=== PATIENT | male | born 1970 | race Caucasian/White ===

== ENCOUNTER 2024-04-08 09:09 | Emergency (ER) | payer OTHER, SELFPAY ==
[2024-04-08 09:09] VITALS: BP 177/103; PULSE 79; RESP 18; TEMP 36.6; O2SAT 98; BMI 38.3
--- NOTE | 2024-04-08 10:16 | EDS_ITS ---
HPI HPI - GI History of Present Illness Chief Complaint: GI Bleed Narrative Narrative: 53-year-old male presenting with blood in stool. He states it was bright red. He was having a bowel movement playing on his phone when he noted he went to wipe and there was blood on the toilet paper. He states he was not straining. He states there was enough blood to make the toilet water pink. He has not had this before. He is not on any blood thinners. He denies abdominal pain or rectal pain. He has not had fever, chills. No nausea or vomiting. PFSH PFSH Allergy/AdvReac Type Severity Reaction Status Date / Time No Known Allergies Allergy Verified 04/08/24 09:11 Social History Smoking Status: Current every day smoker tobacco type: cigarettes ROS ROS ED Constitutional Constitutional ED: Denies chills, fever(s) or sweats Eyes Eyes: Denies blurry vision or change in vision ENT ENT ED: Denies ear pain or sore throat Cardiovascular Cardiovascular: Denies chest pain, palpitations or racing heartbeat Respiratory/Chest Respiratory/Chest: Denies cough, dyspnea or sputum Gastrointestinal Gastrointestinal: Reports other Details: Blood in stool ; Denies abdominal pain, constipation, diarrhea, nausea or vomiting Genitourinary Genitourinary ED: Denies dysuria, hematuria or urinary frequency Musculoskeletal Musculoskeletal: Denies arthralgias, myalgias or neck pain Integumentary Denies abscess, Abrasions or rash Neurologic Neurologic: Denies headache(s), paresthesias or weakness Psychiatric Psychiatric: Denies anxiety, depression, suicidal ideation or suicidal thoughts Endocrine Endocrinology: Denies polydipsia or polyuria EXAM Physical Exam Const Vital Signs: 04/08/24 09:09 04/08/24 11:09 04/08/24 12:00 Temperature 97.8 F 97.5 F L Temperature Source Temporal Pulse Rate 79 82 85 Respiratory Rate 18 17 20 H Blood Pressure 177/103 H 160/98 H 147/92 H Blood Pressure Mean 127 118 110 Pulse Ox 98 96 Oxygen Delivery Method Room Air Positive well nourished General Appearance ED: NAD; Negative for pallor HEENT Reports moist mucous membranes normocephalic Resp normal respiratory effort Auscultation: Negative for rales, rhonchi or wheezes Cardio regular rate and regular rhythm GI non-tender, non-distended and no masses Neuro CN's II-XII intact bilaterally and moves all extremities Sensorium / Orientation: alert Motor Exam: strength 5/5 throughout Psych mental status grossly normal Skin General Skin Exam: Negative for jaundice or pallor MDM MDM MDM Narrative Medical decision making narrative: Patient presenting with blood in stool and on toilet paper. He is not on any blood thinners. He is not lightheaded or dizzy and it only happened 1 time. No history of colonoscopy. History of bowel issues in the past with GI bleeding. He does not have any abdominal pain and his abdominal exam is benign. Will obtain some basic lab work. A CBC, CMP within normal limits. Rectal exam patient does have blood in his stool. I do not feel any hemorrhoids externally or internally. Since his lab work is normal and he feels well I will have him follow-up with Dr. Keane. I spoke with Dr. Carrington regarding the patient he felt he could have been in a timely manner follow-up. Return precautions were discussed at length. Impression: 1. Hematochezia Lab Data Attestation: I reviewed the patient's lab results. Labs: Laboratory Results - last 24 hr 04/08/24 09:30 WBC 9.0 RBC 5.26 Hgb 15.6 Hct 46.7 MCV 88.8 MCH 29.7 MCHC 33.4 RDW Std Deviation 43.2 RDW Coeff of Agueda 13.2 Plt Count 295 MPV 9.4 Immature Gran % (Auto) 0.300 Neut % (Auto) 73.4 H Lymph % (Auto) 18.8 L [place] % (Auto) 4.6 Eos % (Auto) 2.0 Baso % (Auto) 0.9 Absolute Neuts (auto) 6.6 Absolute Lymphs (auto) 1.68 Nucleated RBC % 0 Sodium 139 Potassium 4.0 Chloride 105 Carbon Dioxide 32.0 Anion Gap 2 L BUN 23 H Creatinine 1.11 Estim Creat Clear Calc 98.16 Est GFR (MDRD) Af Amer 88 Est GFR (MDRD) Non-Af 73 BUN/Creatinine Ratio 20.7 H Glucose 101 Calcium 9.7 Total Bilirubin 0.80 AST 22 ALT 61 Alkaline Phosphatase 78 Total Protein 7.7 Albumin 4.0 Globulin 3.7 Albumin/Globulin Ratio 1.1 Discharge Plan Triage Chief Complaint: GI Bleed ED Provider: Kenyon Olvera Dx/Rx/DC Orders Instructions: ED Lower GI Bleeding (Stable) Primary Care Provider: Carlos Paz Referrals: Francisco Bradford DO [Med Staff - Active Staff] - As soon as possible Carlos Paz PA [Primary Care Provider] - Print Language: Macedonian Disposition Disposition: Home, Self Care Discharge Date/Time: 04/08/24 12:02
[2024-04-08 10:33] LABS: Absolute Lymphocyte Count 1.68 X10^3/uL (0.83-4.51); Absolute Neutrophil Count 6.6 X10^3/uL (2.0-7.7); Basophil# 0.08 X10^3/uL; Basophil% 0.9 % (0-1); Eosinophil# 0.18 X10^3/uL; Hematocrit 46.7 % (40-54); Hemoglobin 15.6 g/dL (13.0-16.5); Lymphocyte # 1.68 X10^3/ul (0.83-4.51); Lymphocyte % 18.8 % (19-41); Mean Corp Hgb Conc 33.4 g/dL (32-36); Mean Corpuscular Hgb 29.7 pg (27.0-32.0); Mean Corpuscular Volume 88.8 fL (80-94); Mean Platelet Vol. 9.4 fl (6.2-12.0); Monocyte# 0.41 X10^3/uL; Monocyte% 4.6 % (0-10); NRBC Flagged by Analyzer 0 % (0-5); Neutrophil # 6.58 X10^3/uL (2.7-7.7); Neutrophil % 73.4 % (47-70); Platelet Count 295 K/mm3 (150-450); RBC Distribution Width CV 13.2 % (11.6-14.6); RBC Distribution Width SD 43.2 fl (35.1-43.9); Red Blood Count 5.26 M/mm3 (4.6-6.2)
[2024-04-08 10:53] LABS: ALB/GLOB Ratio 1.1 RATIO (0.9-2.4); AST(SGOT) 22 U/L (15-37); Alanine Aminotransfer ALT/SGPT 61 U/L (16-61); Alkaline Phosphatase 78 U/L (45-117); Anion Gap 2 (5-15); BUN 23 mg/dL (7-18); BUN/Creat Ratio 20.7 RATIO (10-20); Calcium,Total 9.7 mg/dL (8.5-10.1); Chloride 105 mmol/L (98-107); Creatinine, Serum 1.11 mg/dL (0.70-1.30); EST Glomerular Filtration Rate 73 mL/min (>60); Est Glom Filt Rate - Afr Amer 88 mL/min (>60); Estimated Creatinine Clearance 98.16 ml/min; Globulin 3.7 g/dL (2.2-4.2); Glucose 101 mg/dL (74-106); Protein, Total 7.7 g/dL (6.4-8.2); Sodium Level 139 mmol/L (136-145)
[2024-04-08 11:09] VITALS: BP 160/98; PULSE 82; RESP 17
[2024-04-08 12:00] VITALS: BP 147/92; PULSE 85; RESP 20; TEMP 36.4; O2SAT 96
== END 2024-04-08 12:02 | disposition home or self-care (01) ==
PROVIDERS: Emergency Provider Student in an Organized Health Care Education/Training Program; PCP Physician Assistant; Visit Provider Student in an Organized Health Care Education/Training Program
DX: K92.1 Melena (principal); F17.210 Nicotine dependence, cigarettes, uncomplicated
CPT/HCPCS: 80053; 85025; 99283

== ENCOUNTER 2025-03-07 07:18 | Emergency (ER) | payer OTHER, SELFPAY ==
[2025-03-07 07:21] VITALS: BP 152/94; PULSE 94; RESP 18; TEMP 36.9; O2SAT 97; BMI 39.3
--- NOTE | 2025-03-07 07:29 | EKG12_ITS ---
Test Reason : CP Blood Pressure : */* mmHG Vent. Rate : 93 BPM Atrial Rate : 93 BPM P-R Int : 166 ms QRS Dur : 86 ms QT Int : 354 ms P-R-T Axes : -4 -24 -16 degrees QTcB Int : 440 ms Normal sinus rhythm Minimal voltage criteria for LVH, may be normal variant ( R in aVL ) Cannot rule out Anterior infarct , age undetermined Abnormal ECG Confirmed by Alonzo Juarez ([id number]), slot editor WILLIAMS LANGFORD ([id number]) on 03/10/2025 6:47:32 AM Referred By: ABHINAV Confirmed By: Alonzo Juarez
--- NOTE | 2025-03-07 07:30 | ED.VIS.CHEST ---
HPI History of Present Illness Chief Complaint: Chest Pain Detail of Chief Complaint: Chest pain described as a vice Informant: patient Onset/Context/Timing Onset: Yesterday Activity at onset: sudden Timing: Continuous and Waxes and wanes Quality: Positive for - (Viselike sensation with pleuritic component) Location: Right Parasternal and Left Parasternal Current Severity: Mild Maximum Severity: Severe Worsened By: - (Occurred last evening when he became upset) Relieved By: Nothing Associated Symptoms: Positive for - (Bilateral jaw pain and neck pain); Negative for Nausea, Vomiting, Diaphoresis, Dyspnea, Cough, Fever, Lightheadedness, Acid Reflux or Palpitations Narrative Narrative: Patient is a 54-year-old male who is a former smoker and has had hypertension for several years. There is no known family history of heart disease. He denies history of diabetes hypercholesterolemia. He last saw his physician 5 months ago. He is presently on lisinopril and hydrochlorothiazide. He also takes a baby aspirin daily. A he denies any other symptoms. He denies history of VTE. He denies leg pain, swelling discoloration. He denies history of peptic ulcer disease, hiatal hernia or reflux. He was prescribed prednisone and meloxicam for exacerbation of gout. This occurred when he was out of the state vacationing. He was in [place] February 17. He denies abdominal pain, black stool or maroon stool. He denies intolerance to greasy or fried foods. CVD Risk Factors: Positive for Hypertension and Smoking (Former); Negative for Diabetes, Hypercholesterolemia or Family History 1' </=55 PE Risk Factors: Negative for Recent Immobilization, Prior DVT or PE, Cancer or OCP + Smoking + >/=35 TAD Risk Factors: Positive for Hypertension; Negative for Marfan's Syndrome or Family History [facility] Medical History (Updated 03/07/25 @ 11:[address] Nick Packer MD) Gout attack Elevated blood pressure reading with diagnosis of hypertension Allergy/AdvReac Type Severity Reaction Status Date / Time No Known Allergies Allergy Verified 03/07/25 07:21 Family History no significant family his Social History household members: spouse Smoking Status: Former smoker ROS ROS ED Constitutional Constitutional ED: Denies chills, fever(s), subjective or sweats Eyes Eyes: Reports none Cardiovascular Cardiovascular: Reports as per HPI; Denies orthopnea or paroxysmal nocturnal dyspnea Respiratory/Chest Respiratory/Chest: Denies cough, dyspnea, dyspnea on exertion, orthopnea or paroxysmal nocturnal dyspnea Gastrointestinal Gastrointestinal: Denies abdominal pain, diarrhea, melena, nausea or vomiting Genitourinary Genitourinary ED: Denies dysuria, hematuria or urinary frequency Musculoskeletal Musculoskeletal: Reports neck pain; Denies back pain Integumentary Denies rash Neurologic Neurologic: Denies headache(s) or paresthesias Endocrine Endocrinology: Denies cold intolerance, heat intolerance, polydipsia or polyuria Hematologic/Lymphatic Hematologic/Lymphatic: Denies easy bleeding or easy bruising EXAM Physical Exam Const Vital Signs: 03/07/25 07:21 03/07/25 08:22 03/07/25 08:24 Temperature 98.4 F Temperature Source Oral Pulse Rate 94 Respiratory Rate 18 Respiratory Effort Normal Non-Labored Respiratory Pattern Normal Blood Pressure 152/94 H Blood Pressure Mean 113 Pulse Ox 97 Oxygen Delivery Method Room Air Room Air 03/07/25 08:24 03/07/25 09:20 03/07/25 11:00 Temperature Temperature Source Pulse Rate 84 Respiratory Rate Respiratory Effort Normal Non-Labored Respiratory Pattern Blood Pressure 127/93 H 135/92 H Blood Pressure Mean 104 106 Pulse Ox 91 96 Oxygen Delivery Method Room Air Room Air Positive well nourished and well developed Constitutional Narrative: BMI is 39.4. Blood pressure is elevated. General Appearance ED: well developed and NAD; Negative for pallor HEENT Reports moist mucous membranes normocephalic and atraumatic Eyes PERRL and EOMs intact bilaterally General Eye ED: Negative for pale conjunctiva or scleral icterus Neck no lymphadenopathy, supple and no JVD Chest Wall inspection of chest normal Resp normal respiratory effort and clear to auscultation bilaterally Cardio regular rate, regular rhythm, S1 normal heart sound, S2 normal heart sound and no murmurs GI normal to inspection, nondistended, normoactive bowel sounds, soft to palpation, non-tender, non-distended and no masses; Negative for hepatosplenomegaly Back/Spine no CVA tenderness Extremity normal to inspection Extremity Narrative: There is no asymmetry, swelling, discoloration, leg vein distention, palpable cords or tenderness along the distribution of the deep venous system. Neuro oriented x3 and CN's II-XII intact bilaterally Sensorium / Orientation: awake and alert Psych mental status grossly normal Skin no rashes or lesions noted and no wounds General Skin Exam: Negative for jaundice or pallor MDM MDM MDM Narrative Medical decision making narrative: Differential diagnosis includes anxiety reaction, GI etiology, pulmonary etiology i.e. pulmonary embolus, coronary artery disease doubt biliary disease. Workup included EKG, serial troponin T levels, CBC to assess white count H&H, BMP to assess renal function and electrolytes since he is on hydrochlorothiazide D-dimer because of the recent travel and the fact that he commented there is a pleuritic component. On further questioning he states he did have significant improvement/relief standing in the shower. History & Record Review Additional record(s) reviewed:: Prior ED visit (Visit for GI bleed. He was seen by Dr. Kenyon Olvera.) and Prior labs Lab Data Attestation: I reviewed the patient's lab results. Lab results narrative: White count is elevated with slight shift. This is nonspecific. Basic metabolic panel is unremarkable. Glucose is slowly elevated 114. First troponin is normal at 7. Labs: Laboratory Results - last 24 hr 03/07/25 03/07/25 07:35 09:50 WBC 13.0 H RBC 4.93 Hgb 15.0 Hct 44.0 MCV 89.2 MCH 30.4 MCHC 34.1 RDW Std Deviation 43.9 RDW Coeff of Agueda 13.5 Plt Count 303 MPV 9.5 Immature Gran % (Auto) 0.600 Neut % (Auto) 81.3 H Lymph % (Auto) 10.3 L [place] % (Auto) 4.6 Eos % (Auto) 2.5 Baso % (Auto) 0.7 Absolute Neuts (auto) 10.6 H Absolute Lymphs (auto) 1.34 Nucleated RBC % 0 D-Dimer Quant (PE/DVT) 0.27 Sodium 140 Potassium 4.1 Chloride 106 Carbon Dioxide 23.9 Anion Gap 10 BUN 18 Creatinine 0.98 Estim Creat Clear Calc 111.54 Est GFR (MDRD) Non-Af 91 BUN/Creatinine Ratio 18.6 Glucose 114 H Calcium 9.3 Troponin T High Sens 7 Troponin T Hi Sens 2 Hr < 6 Radiography Chest X-Ray - ED: 2 View and Read by ED Physician (Independent reviewed interpreted by me at 0752. Cardiac silhouette size normal. Inspiratory volume is limited. There is no acute process noted i.e. infiltrate, effusion or cephalization. Hilum is unremarkable. Osseous structures reveal no acute pathology.) Diagnostic Testing: Clinical Impression(s) from Imaging Studies Chest X-Ray 03/07/25 07:45 IMPRESSION: No evidence of acute disease. Reading Location: [facility] EKG Initial EKG: Attestation: I personally reviewed and interpreted this EKG as follows: Interpretation: Sinus Rhythm (Rate is 93. VT interval is 106 ms. Cures duration 86 ms. QT duration 3 and 54 ms. Dawson is normal. There is decreased anterior forces. There is flipped T waves in leads III and aVF. Patient has prominent T waves in 1 and aVL. There is no old EKG for comparison.) Management Discussion w/another healthcare provider: [employer] (Because of the EKG changes Dr. Alonzo Juarez on for cardiology was contacted. He feels this is not cardiac in light of the 2 normal troponins with a delta of -1. He recommended follow-up with PCP for outpatient workup.) Treatment and Re-Evaluation :: Patient was resting comfortably when he was informed of chest x-ray results and CBC results at 0821. He completed his course of methylprednisolone last week. He has had no infectious symptoms since November. Discharge Plan Triage Chief Complaint: Chest Pain Other Complaint: General Illness ED Provider: Nick Packer Dx/Rx/DC Orders Clinical Impression: Chest tightness, Elevated blood pressure reading with diagnosis of hypertension Instructions: ED Chest Pain, Uncertain Cause Primary Care Provider: Malathi De La Garza Referrals: Carlos Paz PA [Non-Staff] - 3-5 Days Print Language: Swedish Disposition Disposition: Home, Self Care
--- NOTE | 2025-03-07 07:45 | RAD_ITS ---
PROCEDURE: CHEST PA AND LATERAL 03/07/2025 REASON FOR EXAM: CHEST PAIN TECHNIQUE: Frontal and lateral views of the chest. COMPARISON: None available FINDINGS: Lungs are clear. Cardiac and mediastinal contours appear within limits. Visualized osseous structures appear within limits. RAD/Chest PA and Lateral IMPRESSION: No evidence of acute disease. Reading Location: [id number]
[2025-03-07 08:05] LABS: Absolute Lymphocyte Count 1.34 X10^3/uL (0.83-4.51); Absolute Neutrophil Count 10.6 X10^3/uL (2.0-7.7); Basophil# 0.09 X10^3/uL; Basophil% 0.7 % (0-1); Eosinophil# 0.32 X10^3/uL; Eosinophils% 2.5 % (0-5); Lymphocyte # 1.34 X10^3/ul (0.83-4.51); Lymphocyte % 10.3 % (19-41); Mean Corp Hgb Conc 34.1 g/dL (32-36); Mean Corpuscular Hgb 30.4 pg (27.0-32.0); Mean Corpuscular Volume 89.2 fL (80-94); Mean Platelet Vol. 9.5 fl (6.2-12.0); Monocyte% 4.6 % (0-10); NRBC Flagged by Analyzer 0 % (0-5); Neutrophil # 10.57 X10^3/uL (2.7-7.7); Neutrophil % 81.3 % (47-70); Platelet Count 303 K/mm3 (150-450); RBC Distribution Width CV 13.5 % (11.6-14.6); RBC Distribution Width SD 43.9 fl (35.1-43.9); Red Blood Count 4.93 M/mm3 (4.6-6.2)
[2025-03-07 08:27] LABS: Anion Gap 10 (5-15); BUN 18 mg/dL (4-19); BUN/Creat Ratio 18.6 RATIO (10-20); Calcium,Total 9.3 mg/dL (7.6-11.0); Carbon Dioxide 23.9 mmol/L (21.0-32.0); Chloride 106 mmol/L (98-108); Creatinine, Serum 0.98 mg/dL (0.70-1.20); EST Glomerular Filtration Rate 91 (>60); Estimated Creatinine Clearance 111.54 ml/min (50-250); Glucose 114 mg/dL (70-99); Potassium 4.1 mmol/L (3.3-5.1); Sodium Level 140 mmol/L (133-145); Troponin T High Sensitivity 7 ng/L (<=22)
[2025-03-07 09:20] VITALS: BP 127/93; PULSE 84; O2SAT 91
[2025-03-07 09:31] LABS: D-Dimer Quantitative (DVT/PE) 0.27 FEU/ug/m (0.27-0.49)
[2025-03-07 10:33] LABS: Troponin T High Sens 2 HR < 6 ng/L (<=22)
[2025-03-07 11:00] VITALS: BP 135/92; O2SAT 96
== END 2025-03-07 11:56 | disposition home or self-care (01) ==
PROVIDERS: Emergency Provider Emergency Medicine; PCP Clinical Nurse Specialist Adult Health; Visit Provider Emergency Medicine
DX: R07.89 Other chest pain (principal); I10 Essential (primary) hypertension; R68.84 Jaw pain; M54.2 Cervicalgia; M10.9 Gout, unspecified; Z87.891 Personal history of nicotine dependence; Z79.899 Other long term (current) drug therapy; Z79.82 Long term (current) use of aspirin
CPT/HCPCS: 71046; 80048; 84484; 85025; 85379; 93005; 99285; A4216

== ENCOUNTER → 2025-08-21 | Outpatient (CLI) | payer OTHER, SELFPAY ==
--- OUTSIDE RECORDS SUMMARY | 2025-07-10 15:01 | XMS RPT_ITS ---
Author Name Auto Generated Organization OHIP Care Team Providers Care Installation Tech Name Role Phone SUPPAN, MALATHI A Attending Unavailable SUPPAN, MALATHI A Primary Care Unavailable SUPPAN, MALATHI A Attending Unavailable SUPPAN, MALATHI A Primary Care Unavailable SUPPAN, MALATHI A Attending Unavailable SUPPAN, MALATHI A Primary Care Unavailable SUPPAN, MALATHI A Attending Unavailable SUPPAN, MALATHI A Primary Care Unavailable SUPPAN, MALATHI A Referring Unavailable SUPPAN, MALATHI A Primary Care Unavailable SUPPAN, MALATHI A Attending Unavailable BLACK GOVEA Primary Care Unavailable SUPPAN, MALATHI A Referring Unavailable SUPPAN, MALATHI A Primary Care Unavailable PROBLEMS DATE TYPE CONDITION / CODE ATTENDING STATUS [facility] 06/16/2025 Active Atypical chest p ain / R07.89(ICD-10) SUPPJOSE MALATHI A Active [facility] 05/02/2025 Active Mixed hyperlipid emia / E78.2(ICD-10) SUPPJOSE MALATHI A Active [facility] 03/13/2025 Active Chest pain, unsp ecified type / R07.9(ICD-10) SUPPJOSE MALATHI A Active [facility] 03/13/2025 Active Primary hyperten fer / I10(ICD-10) SUPPJOSE, MALATHI A Active [facility] 03/13/2025 Active Acute idiopathic gout, unspecified site / M10.00(ICD-10) SUPPJOSE MALATHI A Active [facility] 10/31/2024 Active Screening for pr ostate cancer / Z12.5(ICD-10) NA Active [facility] 10/31/2024 Active Wellness examina tion / Z00.00(ICD-10) NA Active [facility] 10/31/2024 Active Screening for di abetes mellitus / Z13.1(ICD-10) NA Active [facility] PROCEDURES No Procedure Records Found RESULTS WESLEY Observed: 07/17/2025 12:00 AM Status: COMPLETED Source: [facility] Telephone (FAMPWS) MATT YOO ([id number]) 1970 M Date Time Provider Department 07/17/25 MALATHI DE LA GARZA During your visit today, we recorded the following information about you: Mariza Marquis LPN 07/17/2025 10:07 AM Signed Patient calling he is having a gout flare, left great toe. Patient said getting quite painful. Patient said back in February was told if occurs again to call provider. Patient requesting Methylprednisolone rx to be sent to [facility] pharmacy. Read February visit notes said if recurrent would need Uric acid level checked and start Allopurinol. Please advise Malathi De La Garza APRN.ANGELA 07/17/2025 10:49 AM Signed Will start medrol. Kenia Denson LPN 07/17/2025 2:52 PM Signed Detailed message left for patient. Allergies As of Date: 07/17/2025 (No Known Allergies) Date Reviewed: 06/16/2025 Reviewed by: Lalitha Andersen MA - Fully Assessed Reason for Visit: Medication Request [138] Order(s):methylPREDNISolone (MEDROL, SANDEEP,) 4 mg Dose-PackTake as instructed per package.Disp: 21 tabletRfl: 0 Prescriptions as of 07/17/2025 - methylPREDNISolone (MEDROL, SANDEEP,) 4 mg Dose-Pack Take as instructed per package. - amLODIPine (NORVASC) 5 mg tablet Take 1 tablet by mouth two times a day. - furosemide (LASIX) 20 mg tablet Take 1 tablet by mouth once daily. - losartan (COZAAR) 100 mg tablet Take 1 tablet by mouth once daily. - Vit N-Bfrafl-Nlrjsi-Grape (TART ORTIZ) 21-313-28-75-20 mg cap Take 1 tablet by mouth once daily. - turmeric 400 mg cap Take 1 tablet by mouth once daily. - ascorbic acid (VITAMIN C ORAL) Take by mouth. - ibuprofen (MOTRIN) 200 mg tablet Take 1-2 tablets by mouth every 6 hours as needed for pain (Take with food.). - aspirin, enteric coated (ASPIRIN, ENTERIC COATED) 81 mg EC tablet Take 81 mg by mouth once daily. - multivitamin/iron/folic acid (CENTRUM COMPLETE ORAL) Take by mouth. - acetaminophen (TYLENOL) 325 mg tablet Take 650 mg by mouth every 6 hours as needed. Problem List As Of Date: 07/17/2025 (None) Prescriptions ordered this encounter Disp Refills Start End METHYLPREDNISOLONE 4 MG TABLETS IN A* 21 t* 0 07/17/2025 07/23/2025 Sig: Take as instructed per package. Encounter Status:Closed by KENIA DENSON on 07/17/25 EXERCISE STRESS ECG (WITHOUT IMAGING) Observed: 07/10/2025 5:01 PM Status: F Source: [facility] Stress Conference Services Coordinator Report: Ex ercise Stress ECG (without Imaging) [facility] Date of service: 07/10/2025 5:01:17 PM DRIVER Supervising physician: Luana Hyde MD PATIENT: Name: MATT YOO Age: 55 years Gender: M The supervising physician was in the department and immediately available. Final Stress ECG Report: Exercise Stress ECG (without Imaging) [facility] Date of service: 07/10/2025 5:01:17 PM DRIVER Ordering physician: MALATHI DE LA GARZA computer support specialist: Mallorie Ling RN Interpreting physician: Luana Hyde MD Patient name: MATT YOO Age: 55 years Gender: M Height: 177.80 cm BSA: 2.49 m Weight: 125.65 kg BMI: 39.7 kg/m Indication: Chest pressure / Chest tightness Stress ECG Conclusion: Conclusion: Normal with exception due to low heart rate recovery and abnormal Andrews treadmill score Prior exam comparison: No prior CC exam Stress ECG Summary: The patient's resting heart rate was 90 bpm and blood pressure was 144/84 mmHg. The patient exercised according to the Daquan protocol. The estimated end-exercise MET level achieved using the FRIEND equation was 6.1, which is in the bottom 10th percentile for age and sex. The estimated end-exercise MET level achieved using the previous ACSM equation was 7.0. The test was terminated due to joint pain and the total exercise time was 6 minutes and 0 seconds. No symptoms provoked during stress. The maximum heart rate was 150 bpm, which is 92% of the predicted heart rate for age. This is an adequate heart rate response. Peak blood pressure was 184/82 mmHg. The double product achieved was [address]. Medications: Last Used AMLODIPINE 1 Days LASIX PRN Resting ECG: Normal Sinus Rhythm and Incomplete RBBB Symptoms at rest: No symptoms Exercise Protocol: Daquan Stress Exercise Table: +-----+ +--------+ +---+---+---+---+---+----+ Stage Speed (MPH) Grade(%) Time (min) HR SYS ROSI RPE SOB METS +-----+ +--------+ +---+---+---+---+---+----+ 1 1.7 10.0 3.0 136 172 76 9.0 2.0 4.2 +-----+ +--------+ +---+---+---+---+---+----+ +-----+ +---------+ +---+---+---+----+---+----+ Speed (MPH) Grade (%) Time (min) HR SYS ROSI RPE SOB METS +-----+ +---------+ +---+---+---+----+---+----+ Final 2.5 12.0 6.00 150 184 82 13.0 5.0 6.1 +-----+ +---------+ +---+---+---+----+---+----+ Recovery Table: +------+ +--------+---+---+---+----+ Stage Speed (MPH) Grade(%) HR SYS ROSI METS +------+ +--------+---+---+---+----+ 1 1.5 0.0 141 2.1 +------+ +--------+---+---+---+----+ 2 1.5 0.0 134 158 82 2.1 +------+ +--------+---+---+---+----+ 3 122 +------+ +--------+---+---+---+----+ 4 114 +------+ +--------+---+---+---+----+ 5 113 156 78 +------+ +--------+---+---+---+----+ Stress Observations: Resting HR: 90 bpm Peak HR: 150 bpm (92% MPHR) Resting BP: 144 / 84 mmHg Peak BP: 184 / 82 mmHg Total exercise time: 6 minutes 0 seconds METS achieved: 6.1 Chronotropic response index (CRI): 0.82 Heart rate recovery (HRR): 9 bpm Rate Pressure Product (RPP): 55850 Andrews Treadmill Score: 6.0 Stress Exercise Observations: Reason for test termination: joint pain Symptoms during test: No symptoms provoked during stress Heart rate response: Adequate heart rate response, Normal CRI (>0.8 Not on B Reinier) and Abnormal HRR (9-12 or 13-[address]/EC) Blood pressure response: Normal BP response ST segment and T wave changes: No ST changes Andrews Treadmill Score: Abnormal Andrews Treadmill Score (<5 but >= -10) Arrhythmias: No arrhythmias Comments: Patient reported knee pain and sob during test and patient refused to continue the test. Metabolic Exercise Data Variable: Observed value [Expected Range] HGI: 1.1 [>1.06 bpm/mmHg] IMPORTANT NOTE REGARDING ESTIMATED MET VALUES: Effective 09/09/2020, the reference equation for determining estimated MET values for [facility] stress tests changed. Comparison of test results before and after that date may show a change in estimated MET values for peak/max exercise despite a test duration that is similar in length. The validity of the new FRIEND equation for exercise METS is endorsed by the [place] [employer]. Clifton P, Aleida LA, Ese R, Baron J, Coby J. New Generalized Equation for Predicting Maximal Oxygen Uptake (from the Fitness Registry and the Importance of Exercise National Database). The [place] Journal of Cardiology. 2017;120(4):688-692). Final CC [employer] Image : [id number] See Link below for Image PROGRESS Observed: 06/16/2025 4:05 PM Status: COMPLETED Source: [facility] HNO ID: [id number] Author: MALATHI DE LA GARZA APRN.CHILD AND FAMILY THERAPIST Service: ? Author Type: Nurse Practitioner Type: Progress Notes Filed: 06/16/2025 16:23 Note Text: This is a 55 year old male who presents today with: No chief complaint on file. HISTORY OF PRESENT ILLNESS: Matt Yoo is a 55 year old male. No chief complaint on file. Matt Yoo is a 55-year-old male with a history of HTN, presenting for management of elevated blood pressure readings and associated symptoms. HTN: Patient is compliant with meds Yes Monitors bp at home: Yes. Denies side effects: Yes. Midsternal abdominal and left sided chest pain that is not related to activity Chest pain: Yes. Dyspnea: No. Edema: No. Palpitations: No. Syncope: No. Headache: No. Dizziness: No. Hypertension: - Home blood pressure readings averaging 160/98 mmHg; most recent reading was 170/109-110 mmHg. - Current medications: Losartan in the morning, Atenolol in the evening. - Reports that Atenolol causes stomach discomfort. - Previously took HCTZ, which exacerbated gout. - Taking multivitamin, dark ortiz, and turmeric supplements. - Scheduled for a stress test on July 10. Chest Pain: - Intermittent sharp pain and tightness in the chest, occurring at rest and with activity. - Describes pain as "squeezy" and "cramp-like." - Denies leg cramps, lightheadedness, or syncope. Headache: - Currently experiencing a headache. Nasal Congestion: - Feels like "fingers stuck up my nose." - Frequent need to blow nose. PAST MEDICAL HISTORY: PAST MEDICAL HISTORY Diagnosis Date DDD (degenerative disc disease), lumbar Essential hypertension Hematochezia Seasonal allergies PAST SURGICAL HISTORY Procedure Laterality Date VASECTOMY UNI/BI SPX W/POSTOP SEMEN EXAMS two surgeries; congenital absence vas deferens right ALLERGIES Patient has no known allergies. MEDICATIONS Current Outpatient Medications Medication Sig atenolol (TENORMIN) 50 mg tablet Take 1 tablet by mouth once daily. losartan (COZAAR) 100 mg tablet Take 1 tablet by mouth once daily. Vit J-Hyvpiq-Qouttb-Grape (TART ORTIZ) 87-858-16-75-20 mg cap Take 1 tablet by mouth once daily. turmeric 400 mg cap Take 1 tablet by mouth once daily. ascorbic acid (VITAMIN C ORAL) Take by mouth. ibuprofen (MOTRIN) 200 mg tablet Take 1-2 tablets by mouth every 6 hours as needed for pain (Take with food.). aspirin, enteric coated (ASPIRIN, ENTERIC COATED) 81 mg EC tablet Take 81 mg by mouth once daily. multivitamin/iron/folic acid (CENTRUM COMPLETE ORAL) Take by mouth. acetaminophen (TYLENOL) 325 mg tablet Take 650 mg by mouth every 6 hours as needed. No current facility-administered medications for this visit. FAMILY HISTORY Problem Relation Age of Onset No Known Problems Mother Hypertension Father Thyroid Father No Known Problems Sister Blood Clots Maternal Grandmother other (Other) Maternal Grandmother Stroke Maternal Grandfather other (MVA) Paternal Grandmother Stroke Paternal Grandfather Social History Tobacco Use Smoking status: Former Smokeless tobacco: Current Types: Chew Vaping Use Vaping status: Never Used Substance Use Topics Alcohol use: Yes Comment: rarely Drug use: No Comment: remote marijuana REVIEW OF SYSTEMS Head: (+) headache, (+) facial pain Ears/Nose/Mouth/Throat: (+) rhinorrhea Cardiovascular: (-) chest pain, (-) lightheadedness, (-) near syncope, (-) peripheral edema Respiratory: (-) cough, (-) wheeze Gastrointestinal: (+) abdominal pain, (+) nausea Musculoskeletal: (-) leg cramps Neurological: (-) drowsiness EXAM: BP 167/102 Pulse 79 Wt 125.6 kg (277 lb) SpO2 97% BMI 39.75 kg/m? PHYSICAL EXAM: GENERAL: NAD, alert and oriented. SKIN: Unremarkable, no rash or skin lesions. HEAD: Normocephalic. LUNGS: Clear to auscultation bilaterally, no wheezes/rhonchi/rales. HEART: Regular rate and rhythm, no murmurs. No ectopy. EXTREMITIES: Normal, no deformities, no skin discoloration, no edema. NEURO: Awake, alert and oriented x3, cranial nerves II-XII grossly intact, normal gait, no involuntary motions. LABS: ASSESSMENT/PLAN: 1. Primary hypertension (I10) - Home BP readings averaging 160/98; current regimen includes atenolol and losartan. - Discontinue atenolol due to GI side effects. - Start Lasix 20 mg daily. - Start amlodipine 5 mg daily. - Educated on proper BP measurement technique, including waiting a few minutes between readings. - Continue losartan as prescribed. - Send home BP readings for ongoing management. Send me BP readings in 2 weeks 2. Atypical chest pain (R07.89) - Ongoing chest pain with variable presentation. - Stress test scheduled for July 10. Discussed treatment plan and patient voices understanding. Patient's questions answered appropriately. Medications and potential side effects were discussed and patient voices understanding. Return to the office as scheduled or as needed for worsening/no improvement. BEN SarmientoOV Observed: 06/16/2025 4:00 PM Status: COMPLETED Source: [facility] Office Visit (FAMPWS) KAUSHALMATT MORRIS ([id number]) 1970 M Date Time Provider Department 06/16/25 4:00 PM MALATHI DE LA GARZA During your visit today, we recorded the following information about you: Pulse Blood pressure Weight 79/minute 167/102 125.6 kg Malathi De La Garza APRN.CNP 06/16/2025 4:23 PM Signed This is a 55 year old male who presents today with: No chief complaint on file. HISTORY OF PRESENT ILLNESS: Matt Yoo is a 55 year old male. No chief complaint on file. Matt Yoo is a 55-year-old male with a history of HTN, presenting for management of elevated blood pressure readings and associated symptoms. HTN: Patient is compliant with meds Yes Monitors bp at home: Yes. Denies side effects: Yes. Midsternal abdominal and left sided chest pain that is not related to activity Chest pain: Yes. Dyspnea: No. Edema: No. Palpitations: No. Syncope: No. Headache: No. Dizziness: No. Hypertension: - Home blood pressure readings averaging 160/98 mmHg; most recent reading was 170/109-110 mmHg. - Current medications: Losartan in the morning, Atenolol in the evening. - Reports that Atenolol causes stomach discomfort. - Previously took HCTZ, which exacerbated gout. - Taking multivitamin, dark ortiz, and turmeric supplements. - Scheduled for a stress test on July 10. Chest Pain: - Intermittent sharp pain and tightness in the chest, occurring at rest and with activity. - Describes pain as "squeezy" and "cramp-like." - Denies leg cramps, lightheadedness, or syncope. Headache: - Currently experiencing a headache. Nasal Congestion: - Feels like "fingers stuck up my nose." - Frequent need to blow nose. PAST MEDICAL HISTORY: PAST MEDICAL HISTORY Diagnosis Date DDD (degenerative disc disease), lumbar Essential hypertension Hematochezia Seasonal allergies PAST SURGICAL HISTORY Procedure Laterality Date VASECTOMY UNI/BI SPX W/POSTOP SEMEN EXAMS two surgeries; congenital absence vas deferens right ALLERGIES Patient has no known allergies. MEDICATIONS Current Outpatient Medications Medication Sig atenolol (TENORMIN) 50 mg tablet Take 1 tablet by mouth once daily. losartan (COZAAR) 100 mg tablet Take 1 tablet by mouth once daily. Vit X-Myjfcd-Owepzi-Grape (TART ORTIZ) 49-828-42-75-20 mg cap Take 1 tablet by mouth once daily. turmeric 400 mg cap Take 1 tablet by mouth once daily. ascorbic acid (VITAMIN C ORAL) Take by mouth. ibuprofen (MOTRIN) 200 mg tablet Take 1-2 tablets by mouth every 6 hours as needed for pain (Take with food.). aspirin, enteric coated (ASPIRIN, ENTERIC COATED) 81 mg EC tablet Take 81 mg by mouth once daily. multivitamin/iron/folic acid (CENTRUM COMPLETE ORAL) Take by mouth. acetaminophen (TYLENOL) 325 mg tablet Take 650 mg by mouth every 6 hours as needed. No current facility-administered medications for this visit. FAMILY HISTORY Problem Relation Age of Onset No Known Problems Mother Hypertension Father Thyroid Father No Known Problems Sister Blood Clots Maternal Grandmother other (Other) Maternal Grandmother Stroke Maternal Grandfather other (MVA) Paternal Grandmother Stroke Paternal Grandfather Social History Tobacco Use Smoking status: Former Smokeless tobacco: Current Types: Chew Vaping Use Vaping status: Never Used Substance Use Topics Alcohol use: Yes Comment: rarely Drug use: No Comment: remote marijuana REVIEW OF SYSTEMS Head: (+) headache, (+) facial pain Ears/Nose/Mouth/Throat: (+) rhinorrhea Cardiovascular: (-) chest pain, (-) lightheadedness, (-) near syncope, (-) peripheral edema Respiratory: (-) cough, (-) wheeze Gastrointestinal: (+) abdominal pain, (+) nausea Musculoskeletal: (-) leg cramps Neurological: (-) drowsiness EXAM: BP 167/102 Pulse 79 Wt 125.6 kg (277 lb) SpO2 97% BMI 39.75 kg/m? PHYSICAL EXAM: GENERAL: NAD, alert and oriented. SKIN: Unremarkable, no rash or skin lesions. HEAD: Normocephalic. LUNGS: Clear to auscultation bilaterally, no wheezes/rhonchi/rales. HEART: Regular rate and rhythm, no murmurs. No ectopy. EXTREMITIES: Normal, no deformities, no skin discoloration, no edema. NEURO: Awake, alert and oriented x3, cranial nerves II-XII grossly intact, normal gait, no involuntary motions. LABS: ASSESSMENT/PLAN: 1. Primary hypertension (I10) - Home BP readings averaging 160/98; current regimen includes atenolol and losartan. - Discontinue atenolol due to GI side effects. - Start Lasix 20 mg daily. - Start amlodipine 5 mg daily. - Educated on proper BP measurement technique, including waiting a few minutes between readings. - Continue losartan as prescribed. - Send home BP readings for ongoing management. Send me BP readings in 2 weeks 2. Atypical chest pain (R07.89) - Ongoing chest pain with variable presentation. - Stress test scheduled for July 10. Discussed treatment plan and patient voices understanding. Patient's questions answered appropriately. Medications and potential side effects were discussed and patient voices understanding. Return to the office as scheduled or as needed for worsening/no improvement. BEN Sarmiento Jacqueline A, APRN.CNP 06/16/2025 4:23 PM Signed - Stop taking atenolol as of today. - Begin Lasix (furosemide) 20 mg once daily. - Begin amlodipine 5 mg once daily. - Continue your losartan each morning as before. - Continue taking your dark-ortiz multivitamin and turmeric supplement. - Check your blood pressure at home and send your daily averages to our office. - Stress test is scheduled for July 10 -- we will review those results when they arrive. Allergies As of Date: 06/16/2025 (No Known Allergies) Date Reviewed: 06/16/2025 Reviewed by: Lalitha Andersen MA - Fully Assessed Primary Visit Diagnosis:Primary hypertension [I10] Other Visit Diagnosis:Atypical chest pain [R07.89] Order(s):furosemide (LASIX) 20 mg tabletTake 1 tablet by mouth once daily.Disp: 30 tabletRfl: 5 amLODIPine (NORVASC) 5 mg tabletTake 1 tablet by mouth once daily.Disp: 90 tabletRfl: 1 Prescriptions as of 06/16/2025 - furosemide (LASIX) 20 mg tablet Take 1 tablet by mouth once daily. - amLODIPine (NORVASC) 5 mg tablet Take 1 tablet by mouth once daily. - losartan (COZAAR) 100 mg tablet Take 1 tablet by mouth once daily. - Vit B-Zcphqa-Motmjp-Grape (TART ORTIZ) 34-583-76-75-20 mg cap Take 1 tablet by mouth once daily. - turmeric 400 mg cap Take 1 tablet by mouth once daily. - ascorbic acid (VITAMIN C ORAL) Take by mouth. - ibuprofen (MOTRIN) 200 mg tablet Take 1-2 tablets by mouth every 6 hours as needed for pain (Take with food.). - aspirin, enteric coated (ASPIRIN, ENTERIC COATED) 81 mg EC tablet Take 81 mg by mouth once daily. - multivitamin/iron/folic acid (CENTRUM COMPLETE ORAL) Take by mouth. - acetaminophen (TYLENOL) 325 mg tablet Take 650 mg by mouth every 6 hours as needed. Problem List As Of Date: 06/16/2025 (None) Other instructions from your clinician: - Stop taking atenolol as of today. - Begin Lasix (furosemide) 20 mg once daily. - Begin amlodipine 5 mg once daily. - Continue your losartan each morning as before. - Continue taking your dark-ortiz multivitamin and turmeric supplement. - Check your blood pressure at home and send your daily averages to our office. - Stress test is scheduled for July 10 -- we will review those results when they arrive. Prescriptions ordered this encounter Disp Refills Start End FUROSEMIDE 20 MG TABLET 30 t* 5 06/16/2025 12/13/2025 Route: PO Sig: Take 1 tablet by mouth once daily. AMLODIPINE 5 MG TABLET 90 t* 1 06/16/2025 12/13/2025 Route: PO Sig: Take 1 tablet by mouth once daily. Medications Discontinued During This Encounter Prescriptions - atenolol (TENORMIN) 50 mg tablet (Discontinued) Take 1 tablet by mouth once daily. Level of Service: OFFICE/OUTPATIENT ESTABLISHED LOW MDM 20 MIN [12259] Additional E/M codes: VISIT CPLX INHERENT EANDM ASSOC WITH MED * Encounter Status:Closed by MALATHI DE LA GARZA on 06/16/25 PROGRESS Observed: 06/02/2025 8:33 AM Status: COMPLETED Source: [facility] ID: [id number] Author: MALATHI DE LA GARZA APRN.[facility] Service: ? Author Type: Nurse Practitioner Type: Progress Notes Filed: 06/02/2025 08:48 Note Text: This is a 55 year old male who presents today with: Patient presents with: Hypertension: 4 week follow up HISTORY OF PRESENT ILLNESS: Matt Yoo is a 55 year old male. Patient presents with: Hypertension: 4 week follow up HTN: Patient is compliant with meds Yes Monitors bp at home: No. Denies side effects: Yes. Bloated and tired Chest pain: No. Dyspnea: No. Edema: No. Palpitations: No. Syncope: No. Headache: Yes. Has history of headaches Dizziness: No. PAST MEDICAL HISTORY: PAST MEDICAL HISTORY Diagnosis Date DDD (degenerative disc disease), lumbar Essential hypertension Hematochezia Seasonal allergies PAST SURGICAL HISTORY Procedure Laterality Date VASECTOMY UNI/BI SPX W/POSTOP SEMEN EXAMS two surgeries; congenital absence vas deferens right ALLERGIES Patient has no known allergies. MEDICATIONS Current Outpatient Medications Medication Sig losartan (COZAAR) 100 mg tablet Take 1 tablet by mouth once daily. Vit G-Nqzxdn-Mmtwcy-Grape (TART ORTIZ) 05-334-98-75-20 mg cap Take 1 tablet by mouth once daily. turmeric 400 mg cap Take 1 tablet by mouth once daily. ascorbic acid (VITAMIN C ORAL) Take by mouth. ibuprofen (MOTRIN) 200 mg tablet Take 1-2 tablets by mouth every 6 hours as needed for pain (Take with food.). aspirin, enteric coated (ASPIRIN, ENTERIC COATED) 81 mg EC tablet Take 81 mg by mouth once daily. multivitamin/iron/folic acid (CENTRUM COMPLETE ORAL) Take by mouth. acetaminophen (TYLENOL) 325 mg tablet Take 650 mg by mouth every 6 hours as needed. No current facility-administered medications for this visit. FAMILY HISTORY Problem Relation Age of Onset No Known Problems Mother Hypertension Father Thyroid Father No Known Problems Sister Blood Clots Maternal Grandmother other (Other) Maternal Grandmother Stroke Maternal Grandfather other (MVA) Paternal Grandmother Stroke Paternal Grandfather Social History Tobacco Use Smoking status: Former Smokeless tobacco: Current Types: Chew Vaping Use Vaping status: Never Used Substance Use Topics Alcohol use: Yes Comment: rarely Drug use: No Comment: remote marijuana EXAM: BP 141/90 Pulse 97 Wt 124.7 kg (275 lb) SpO2 98% BMI 39.46 kg/m? PHYSICAL EXAM: Physical Exam Vitals reviewed. Constitutional: Appearance: Normal appearance. HENT: Head: Normocephalic. Cardiovascular: Rate and Rhythm: Normal rate and regular rhythm. Pulses: Normal pulses. Heart sounds: Normal heart sounds. Pulmonary: Effort: Pulmonary effort is normal. Breath sounds: Normal breath sounds. Abdominal: General: There is distension. Tenderness: There is no abdominal tenderness. There is no guarding or rebound. Musculoskeletal: Right lower leg: No edema. Left lower leg: No edema. Skin: General: Skin is warm and dry. Neurological: Mental Status: He is alert and oriented to person, place, and time. LABS: ASSESSMENT/PLAN: 1. Primary hypertension - ICD9: 401.9, ICD10: I10 - Uncontrolled - Recommend home blood pressure monitoring, to bring results to next visit - Encouraged sodium restriction, DASH or Mediterranean diet - Recommend regular aerobic exercise - ATENOLOL 50 MG TABLET daily - DME SUPPLY OR ACCESSORY, NOS - Continue losartan 100 mg daily Discussed treatment plan and patient voices understanding. Patient's questions answered appropriately. Medications and potential side effects were discussed and patient voices understanding. Return to the office as scheduled or as needed for worsening/no improvement. Malathi De La Garza APRN.CNP CNOV Observed: 06/02/2025 8:20 AM Status: COMPLETED Source: [facility] MATT [facility]OO ([id number]) 1970 M Date Time Provider Department 06/02/25 8:20 AM [facility] During your visit today, we recorded the following information about you: Pulse Blood pressure Weight 97/minute 166/106 124.7 kg Malathi De La Garza APRN.CNP 06/02/2025 8:48 AM Signed This is a 55 year old male who presents today with: Patient presents with: Hypertension: 4 week follow up HISTORY OF PRESENT ILLNESS: Matt Yoo is a 55 year old male. Patient presents with: Hypertension: 4 week follow up HTN: Patient is compliant with meds Yes Monitors bp at home: No. Denies side effects: Yes. Bloated and tired Chest pain: No. Dyspnea: No. Edema: No. Palpitations: No. Syncope: No. Headache: Yes. Has history of headaches Dizziness: No. PAST MEDICAL HISTORY: PAST MEDICAL HISTORY Diagnosis Date DDD (degenerative disc disease), lumbar Essential hypertension Hematochezia Seasonal allergies PAST SURGICAL HISTORY Procedure Laterality Date VASECTOMY UNI/BI SPX W/POSTOP SEMEN EXAMS two surgeries; congenital absence vas deferens right ALLERGIES Patient has no known allergies. MEDICATIONS Current Outpatient Medications Medication Sig losartan (COZAAR) 100 mg tablet Take 1 tablet by mouth once daily. Vit L-Hngute-Govdel-Grape (TART ORTIZ) 98-582-54-75-20 mg cap Take 1 tablet by mouth once daily. turmeric 400 mg cap Take 1 tablet by mouth once daily. ascorbic acid (VITAMIN C ORAL) Take by mouth. ibuprofen (MOTRIN) 200 mg tablet Take 1-2 tablets by mouth every 6 hours as needed for pain (Take with food.). aspirin, enteric coated (ASPIRIN, ENTERIC COATED) 81 mg EC tablet Take 81 mg by mouth once daily. multivitamin/iron/folic acid (CENTRUM COMPLETE ORAL) Take by mouth. acetaminophen (TYLENOL) 325 mg tablet Take 650 mg by mouth every 6 hours as needed. No current facility-administered medications for this visit. FAMILY HISTORY Problem Relation Age of Onset No Known Problems Mother Hypertension Father Thyroid Father No Known Problems Sister Blood Clots Maternal Grandmother other (Other) Maternal Grandmother Stroke Maternal Grandfather other (MVA) Paternal Grandmother Stroke Paternal Grandfather Social History Tobacco Use Smoking status: Former Smokeless tobacco: Current Types: Chew Vaping Use Vaping status: Never Used Substance Use Topics Alcohol use: Yes Comment: rarely Drug use: No Comment: remote marijuana EXAM: BP 141/90 Pulse 97 Wt 124.7 kg (275 lb) SpO2 98% BMI 39.46 kg/m? PHYSICAL EXAM: Physical Exam Vitals reviewed. Constitutional: Appearance: Normal appearance. HENT: Head: Normocephalic. Cardiovascular: Rate and Rhythm: Normal rate and regular rhythm. Pulses: Normal pulses. Heart sounds: Normal heart sounds. Pulmonary: Effort: Pulmonary effort is normal. Breath sounds: Normal breath sounds. Abdominal: General: There is distension. Tenderness: There is no abdominal tenderness. There is no guarding or rebound. Musculoskeletal: Right lower leg: No edema. Left lower leg: No edema. Skin: General: Skin is warm and dry. Neurological: Mental Status: He is alert and oriented to person, place, and time. LABS: ASSESSMENT/PLAN: 1. Primary hypertension - ICD9: 401.9, ICD10: I10 - Uncontrolled - Recommend home blood pressure monitoring, to bring results to next visit - Encouraged sodium restriction, DASH or Mediterranean diet - Recommend regular aerobic exercise - ATENOLOL 50 MG TABLET daily - DME SUPPLY OR ACCESSORY, NOS - Continue losartan 100 mg daily Discussed treatment plan and patient voices understanding. Patient's questions answered appropriately. Medications and potential side effects were discussed and patient voices understanding. Return to the office as scheduled or as needed for worsening/no improvement. Malathi De La Garza, IVAN.Malathi Stephenson APRN.ANGELA 06/02/2025 8:48 AM Addendum 1) Start atenolol 50 mg daily 2) Continue losartan 100 mg daily 3) Please send 3 BP readings after being on atenolol for 2 weeks or follow up in a month 4) Follow up in 6 months Allergies As of Date: 06/02/2025 (No Known Allergies) Date Reviewed: 06/02/2025 Reviewed by: Lalitha Andersen MA - Fully Assessed Reason for Visit: Hypertension [168] Cmt: 4 week follow up Primary Visit Diagnosis:Primary hypertension [I10] Order(s):atenolol (TENORMIN) 50 mg tabletTake 1 tablet by mouth once daily.Disp: 90 tabletRfl: 1 DME SUPPLY OR ACCESSORY, NOS [[id number]] Order #: [id number] Prescriptions as of 06/02/2025 - atenolol (TENORMIN) 50 mg tablet Take 1 tablet by mouth once daily. - losartan (COZAAR) 100 mg tablet Take 1 tablet by mouth once daily. - Vit E-Sronew-Taremg-Grape (TART ORTIZ) 55-910-46-75-20 mg cap Take 1 tablet by mouth once daily. - turmeric 400 mg cap Take 1 tablet by mouth once daily. - ascorbic acid (VITAMIN C ORAL) Take by mouth. - ibuprofen (MOTRIN) 200 mg tablet Take 1-2 tablets by mouth every 6 hours as needed for pain (Take with food.). - aspirin, enteric coated (ASPIRIN, ENTERIC COATED) 81 mg EC tablet Take 81 mg by mouth once daily. - multivitamin/iron/folic acid (CENTRUM COMPLETE ORAL) Take by mouth. - acetaminophen (TYLENOL) 325 mg tablet Take 650 mg by mouth every 6 hours as needed. Problem List As Of Date: 06/02/2025 (None) Other instructions from your clinician: 1) Start atenolol 50 mg daily 2) Continue losartan 100 mg daily 3) Please send 3 BP readings after being on atenolol for 2 weeks or follow up in a month 4) Follow up in 6 months Prescriptions ordered this encounter Disp Refills Start End ATENOLOL 50 MG TABLET 90 t* 1 06/02/2025 11/29/2025 Route: PO Sig: Take 1 tablet by mouth once daily. Level of Service: OFFICE/OUTPATIENT ESTABLISHED LOW MDM 20 MIN [25929] Additional E/M codes: VISIT CPLX INHERENT EANDM ASSOC WITH MED * Disposition: Return in about 6 months (around 12/03/2025) for routine. Follow-up and Disposition History for Encounter Date Provider Department Center 06/02/2025 [id number]-VNIAUTINOCENCIA DE LA GARZA*YARI Lewis [facility] Encounter Status:Closed by MALATHI DE LA GARZA on 06/02/25 PROGRESS Observed: 05/16/2025 9:21 AM Status: COMPLETED Source: [facility] HNO ID: [id number] Author: MALATHI DE LA GARZA APRN.CNP Service: ? Author Type: Nurse Practitioner Type: Progress Notes Filed: 05/16/2025 09:22 Note Text: I will order labs when I see patient. MARICRUZ Observed: 05/16/2025 12:00 AM Status: COMPLETED Source: [facility] Patient Outreach ([facility]) MATT YOO ([id number]) 1970 M Date Time Provider Department 05/16/25 MALATHI DE LA GARZA [facility] During your visit today, we recorded the following information about you: Malathi De La Garza APRN.CNP 05/16/2025 9:22 AM Signed I will order labs when I see patient. Allergies As of Date: 05/16/2025 (No Known Allergies) Date Reviewed: 05/02/2025 Reviewed by: Lalitha Andersen MA - Fully Assessed Visit Diagnoses:Primary hypertension [I10] Medication management [Z79.899] Prescriptions as of 05/16/2025 - losartan (COZAAR) 100 mg tablet Take 1 tablet by mouth once daily. - Vit P-Plfwas-Gkdljx-Grape (TART ORTIZ) 67-028-59-75-20 mg cap Take 1 tablet by mouth once daily. - turmeric 400 mg cap Take 1 tablet by mouth once daily. - ascorbic acid (VITAMIN C ORAL) Take by mouth. - ibuprofen (MOTRIN) 200 mg tablet Take 1-2 tablets by mouth every 6 hours as needed for pain (Take with food.). - aspirin, enteric coated (ASPIRIN, ENTERIC COATED) 81 mg EC tablet Take 81 mg by mouth once daily. - multivitamin/iron/folic acid (CENTRUM COMPLETE ORAL) Take by mouth. - acetaminophen (TYLENOL) 325 mg tablet Take 650 mg by mouth every 6 hours as needed. Problem List As Of Date: 05/16/2025 (None) Encounter Status:Closed by MALATHI DE LA GARZA on 05/16/25 PROGRESS Observed: 05/02/2025 8:11 AM Status: COMPLETED Source: [facility] HNO ID: [id number] Author: MALATHI DE LA GARZA APRN.CHILD AND FAMILY THERAPIST Service: ? Author Type: Nurse Practitioner Type: Progress Notes Filed: 05/02/2025 08:34 Note Text: This is a 54 year old male who presents today with: Patient presents with: 6 Month Exam HISTORY OF PRESENT ILLNESS: Matt Yoo is a 54 year old male. Patient presents with: 6 Month Exam HTN: Patient is compliant with meds Yes Monitors bp at home: No. Denies side effects: Thinks that lisinopril thins his blood. Chest pain: No. Dyspnea: No. Edema: No. Palpitations: No. Syncope: No. Headache: Yes. Dizziness: No. Matt Yoo is a 54-year-old male with a history of HTN and gout, presenting for follow-up. Hypertension: - Currently taking Lisinopril; reports it is "not working." - Noted changes in bleeding characteristics, describing it as "very thin" and like water. - Unable to check blood pressure at home due to misplaced machine. - No chest pain since hospitalization in February for chest pain. - Dyspnea only with exertion. - Mild headaches; denies dizziness, changes in hearing or vision, nausea, or emesis. - Takes low-dose aspirin daily. Gout: - No severe flares since discontinuation of hydrochlorothiazide. - Persistent lump on the side of the foot with minimal pain. - Describes discomfort as similar to a joint needing to be cracked. - Reports some heat in the affected area. - No significant changes in symptoms with dietary modifications. PAST MEDICAL HISTORY: PAST MEDICAL HISTORY Diagnosis Date DDD (degenerative disc disease), lumbar Essential hypertension Hematochezia Seasonal allergies PAST SURGICAL HISTORY Procedure Laterality Date VASECTOMY UNI/BI SPX W/POSTOP SEMEN EXAMS two surgeries; congenital absence vas deferens right ALLERGIES Patient has no known allergies. MEDICATIONS Current Outpatient Medications Medication Sig lisinopril (ZESTRIL) 30 mg tablet Take 1 tablet by mouth once daily. Vit G-Itwtrv-Nzsazn-Grape (TART ORTIZ) 63-042-04-75-20 mg cap Take 1 tablet by mouth once daily. turmeric 400 mg cap Take 1 tablet by mouth once daily. ascorbic acid (VITAMIN C ORAL) Take by mouth. ibuprofen (MOTRIN) 200 mg tablet Take 1-2 tablets by mouth every 6 hours as needed for pain (Take with food.). aspirin, enteric coated (ASPIRIN, ENTERIC COATED) 81 mg EC tablet Take 81 mg by mouth once daily. multivitamin/iron/folic acid (CENTRUM COMPLETE ORAL) Take by mouth. acetaminophen (TYLENOL) 325 mg tablet Take 650 mg by mouth every 6 hours as needed. No current facility-administered medications for this visit. FAMILY HISTORY Problem Relation Age of Onset No Known Problems Mother Hypertension Father Thyroid Father No Known Problems Sister Blood Clots Maternal Grandmother other (Other) Maternal Grandmother Stroke Maternal Grandfather other (MVA) Paternal Grandmother Stroke Paternal Grandfather Social History Tobacco Use Smoking status: Former Smokeless tobacco: Current Types: Chew Vaping Use Vaping status: Never Used Substance Use Topics Alcohol use: Yes Comment: rarely Drug use: No Comment: remote marijuana REVIEW OF SYSTEMS Eyes: (-) visual changes Ears/Nose/Mouth/Throat: (-) hearing changes Cardiovascular: (+) lower extremity swelling, (-) chest pain Respiratory: (+) exertional dyspnea Gastrointestinal: (-) nausea, (-) vomiting, (-) diarrhea, (-) constipation Genitourinary: (-) dysuria, (-) hematuria Musculoskeletal: (+) generalized musculoskeletal pain, (+) wrist pain, (+) great toe swelling Neurological: (+) headaches, (-) dizziness Hematologic/Lymphatic: (+) easy bleeding EXAM: BP 148/92 Pulse 71 Wt 122.9 kg (271 lb) SpO2 96% BMI 38.88 kg/m? PHYSICAL EXAM: GENERAL: NAD, alert and oriented. SKIN: Unremarkable, no rash or skin lesions. HEAD: Normocephalic. NECK: Supple, no lymphadenopathy, normal thyroid, no carotid bruits. LUNGS: Clear to auscultation bilaterally, no wheezes/rhonchi/rales. HEART: Regular rate and rhythm, no murmurs. No ectopy. EXTREMITIES: Normal, no deformities, no skin discoloration, no edema. NEURO: Awake, alert and oriented x3, cranial nerves II-XII grossly intact, normal gait, no involuntary motions. LABS: 1. Primary hypertension (I10) - Blood pressure remains uncontrolled on current regimen of lisinopril; recent reading 146/98 mmHg. - No recent chest pain, dyspnea only on exertion; no significant edema noted. - Recent hospitalization on March 07 for chest pain. - Discontinue lisinopril. - Initiate losartan. - Advised patient to locate and use home blood pressure monitor regularly. 2. Acute idiopathic gout, unspecified site (M10.00) - Chronic low-grade discomfort in affected joint, with occasional minimal swelling and residual warmth; no recent severe flares. - Discontinued hydrochlorothiazide previously, which has reduced the frequency and severity of gout flares. - Continue monitoring dietary triggers. - Continue low-dose aspirin therapy. 3. Mixed hyperlipidemia (E78.2) - Discussed diet Discussed treatment plan and patient voices understanding. Patient's questions answered appropriately. Medications and potential side effects were discussed and patient voices understanding. Return to the office as scheduled or as needed for worsening/no improvement. Malathi De La Garza, IVAN.CHILD AND FAMILY THERAPIST CNOV Observed: 05/02/2025 8:00 AM Status: COMPLETED Source: [facility] Office Visit ([facility]) MATT YOO ([id number]) 1970 M Date Time Provider Department 05/02/25 8:00 AM MALATHI DE LA GARZA During your visit today, we recorded the following information about you: Pulse Blood pressure Weight 71/minute 148/92 122.9 kg Malathi De La Garza APRN.CNP 05/02/2025 8:34 AM Signed This is a 54 year old male who presents today with: Patient presents with: 6 Month Exam HISTORY OF PRESENT ILLNESS: Matt Yoo is a 54 year old male. Patient presents with: 6 Month Exam HTN: Patient is compliant with meds Yes Monitors bp at home: No. Denies side effects: Thinks that lisinopril thins his blood. Chest pain: No. Dyspnea: No. Edema: No. Palpitations: No. Syncope: No. Headache: Yes. Dizziness: No. Matt Yoo is a 54-year-old male with a history of HTN and gout, presenting for follow-up. Hypertension: - Currently taking Lisinopril; reports it is "not working." - Noted changes in bleeding characteristics, describing it as "very thin" and like water. - Unable to check blood pressure at home due to misplaced machine. - No chest pain since hospitalization in February for chest pain. - Dyspnea only with exertion. - Mild headaches; denies dizziness, changes in hearing or vision, nausea, or emesis. - Takes low-dose aspirin daily. Gout: - No severe flares since discontinuation of hydrochlorothiazide. - Persistent lump on the side of the foot with minimal pain. - Describes discomfort as similar to a joint needing to be cracked. - Reports some heat in the affected area. - No significant changes in symptoms with dietary modifications. PAST MEDICAL HISTORY: PAST MEDICAL HISTORY Diagnosis Date DDD (degenerative disc disease), lumbar Essential hypertension Hematochezia Seasonal allergies PAST SURGICAL HISTORY Procedure Laterality Date VASECTOMY UNI/BI SPX W/POSTOP SEMEN EXAMS two surgeries; congenital absence vas deferens right ALLERGIES Patient has no known allergies. MEDICATIONS Current Outpatient Medications Medication Sig lisinopril (ZESTRIL) 30 mg tablet Take 1 tablet by mouth once daily. Vit M-Fivluz-Ajlyjf-Grape (TART ORTIZ) 50-039-78-75-20 mg cap Take 1 tablet by mouth once daily. turmeric 400 mg cap Take 1 tablet by mouth once daily. ascorbic acid (VITAMIN C ORAL) Take by mouth. ibuprofen (MOTRIN) 200 mg tablet Take 1-2 tablets by mouth every 6 hours as needed for pain (Take with food.). aspirin, enteric coated (ASPIRIN, ENTERIC COATED) 81 mg EC tablet Take 81 mg by mouth once daily. multivitamin/iron/folic acid (CENTRUM COMPLETE ORAL) Take by mouth. acetaminophen (TYLENOL) 325 mg tablet Take 650 mg by mouth every 6 hours as needed. No current facility-administered medications for this visit. FAMILY HISTORY Problem Relation Age of Onset No Known Problems Mother Hypertension Father Thyroid Father No Known Problems Sister Blood Clots Maternal Grandmother other (Other) Maternal Grandmother Stroke Maternal Grandfather other (MVA) Paternal Grandmother Stroke Paternal Grandfather Social History Tobacco Use Smoking status: Former Smokeless tobacco: Current Types: Chew Vaping Use Vaping status: Never Used Substance Use Topics Alcohol use: Yes Comment: rarely Drug use: No Comment: remote marijuana REVIEW OF SYSTEMS Eyes: (-) visual changes Ears/Nose/Mouth/Throat: (-) hearing changes Cardiovascular: (+) lower extremity swelling, (-) chest pain Respiratory: (+) exertional dyspnea Gastrointestinal: (-) nausea, (-) vomiting, (-) diarrhea, (-) constipation Genitourinary: (-) dysuria, (-) hematuria Musculoskeletal: (+) generalized musculoskeletal pain, (+) wrist pain, (+) great toe swelling Neurological: (+) headaches, (-) dizziness Hematologic/Lymphatic: (+) easy bleeding EXAM: BP 148/92 Pulse 71 Wt 122.9 kg (271 lb) SpO2 96% BMI 38.88 kg/m? PHYSICAL EXAM: GENERAL: NAD, alert and oriented. SKIN: Unremarkable, no rash or skin lesions. HEAD: Normocephalic. NECK: Supple, no lymphadenopathy, normal thyroid, no carotid bruits. LUNGS: Clear to auscultation bilaterally, no wheezes/rhonchi/rales. HEART: Regular rate and rhythm, no murmurs. No ectopy. EXTREMITIES: Normal, no deformities, no skin discoloration, no edema. NEURO: Awake, alert and oriented x3, cranial nerves II-XII grossly intact, normal gait, no involuntary motions. LABS: 1. Primary hypertension (I10) - Blood pressure remains uncontrolled on current regimen of lisinopril; recent reading 146/98 mmHg. - No recent chest pain, dyspnea only on exertion; no significant edema noted. - Recent hospitalization on March 07 for chest pain. - Discontinue lisinopril. - Initiate losartan. - Advised patient to locate and use home blood pressure monitor regularly. 2. Acute idiopathic gout, unspecified site (M10.00) - Chronic low-grade discomfort in affected joint, with occasional minimal swelling and residual warmth; no recent severe flares. - Discontinued hydrochlorothiazide previously, which has reduced the frequency and severity of gout flares. - Continue monitoring dietary triggers. - Continue low-dose aspirin therapy. 3. Mixed hyperlipidemia (E78.2) - Discussed diet Discussed treatment plan and patient voices understanding. Patient's questions answered appropriately. Medications and potential side effects were discussed and patient voices understanding. Return to the office as scheduled or as needed for worsening/no improvement. BEN Sarmiento Jacqueline A, APRN.CNP 05/02/2025 8:34 AM Signed - Switch blood pressure medicine to losartan 100 mg as prescribed. Stop lisinopril. - Recheck BP in 1 month--so we can see if your readings stay high. - Please follow a diet low in saturated fats by eliminating fried foods, choose only lean meats/ skim dairy products Allergies As of Date: 05/02/2025 (No Known Allergies) Date Reviewed: 05/02/2025 Reviewed by: Lalitha Andersen MA - Fully Assessed Reason for Visit: 6 Month Exam [189] Primary Visit Diagnosis:Primary hypertension [I10] Other Visit Diagnoses:Acute idiopathic gout, unspecified site [M10.00] Mixed hyperlipidemia [E78.2] Order(s):losartan (COZAAR) 100 mg tabletTake 1 tablet by mouth once daily.Disp: 90 tabletRfl: 1 Prescriptions as of 05/02/2025 - losartan (COZAAR) 100 mg tablet Take 1 tablet by mouth once daily. - Vit Q-Hiycdj-Ddkakd-Grape (TART ORTIZ) 95-878-78-75-20 mg cap Take 1 tablet by mouth once daily. - turmeric 400 mg cap Take 1 tablet by mouth once daily. - ascorbic acid (VITAMIN C ORAL) Take by mouth. - ibuprofen (MOTRIN) 200 mg tablet Take 1-2 tablets by mouth every 6 hours as needed for pain (Take with food.). - aspirin, enteric coated (ASPIRIN, ENTERIC COATED) 81 mg EC tablet Take 81 mg by mouth once daily. - multivitamin/iron/folic acid (CENTRUM COMPLETE ORAL) Take by mouth. - acetaminophen (TYLENOL) 325 mg tablet Take 650 mg by mouth every 6 hours as needed. Problem List As Of Date: 05/02/2025 (None) Other instructions from your clinician: - Switch blood pressure medicine to losartan 100 mg as prescribed. Stop lisinopril. - Recheck BP in 1 month--so we can see if your readings stay high. - Please follow a diet low in saturated fats by eliminating fried foods, choose only lean meats/ skim dairy products Prescriptions ordered this encounter Disp Refills Start End LOSARTAN 100 MG TABLET 90 t* 1 05/02/2025 10/29/2025 Route: PO Sig: Take 1 tablet by mouth once daily. Medications Discontinued During This Encounter Prescriptions - lisinopril (ZESTRIL) 30 mg tablet (Discontinued) Take 1 tablet by mouth once daily. Level of Service: OFFICE/OUTPATIENT ESTABLISHED MOD [facility] 30 MIN [61508] Additional E/M codes: VISIT CPLX INHERENT EANDM ASSOC WITH MED * Disposition: Return in about 4 weeks (around 05/30/2025) for follow up on blood pressure. Follow-up and Disposition History for Encounter Date Provider Department Center 05/02/2025 [id number]-VXLYHLINOCENCIA DE LA GARZA*YARI Lewis [facility] Encounter Status:Closed by MALATHI DE LA GARZA on 05/02/25 ANGELATOUTRKATHIA Observed: 04/18/2025 12:00 AM Status: COMPLETED Source: [facility] Patient Outreach ([facility]) MATT YOO ([id number]) 1970 M Date Time Provider Department 04/18/25 MALATHI DE LA GARZA [facility] During your visit today, we recorded the following information about you: Allergies As of Date: 04/18/2025 (No Known Allergies) Date Reviewed: 10/31/2024 Reviewed by: Malathi De La Garza APRN.CHILD AND FAMILY THERAPIST - Fully Assessed Visit Diagnoses:Primary hypertension [I10] Medication management [Z79.899] Prescriptions as of 04/21/2025 - lisinopril (ZESTRIL) 30 mg tablet Take 1 tablet by mouth once daily. - Vit Y-Rzfpdz-Hhazvu-Grape (TART ORTIZ) 82-735-05-75-20 mg cap Take 1 tablet by mouth once daily. - turmeric 400 mg cap Take 1 tablet by mouth once daily. - ascorbic acid (VITAMIN C ORAL) Take by mouth. - ibuprofen (MOTRIN) 200 mg tablet Take 1-2 tablets by mouth every 6 hours as needed for pain (Take with food.). - aspirin, enteric coated (ASPIRIN, ENTERIC COATED) 81 mg EC tablet Take 81 mg by mouth once daily. - multivitamin/iron/folic acid (CENTRUM COMPLETE ORAL) Take by mouth. - acetaminophen (TYLENOL) 325 mg tablet Take 650 mg by mouth every 6 hours as needed. Problem List As Of Date: 04/18/2025 (None) Encounter Status:Closed by LUCIANO HUFFMAN on 04/21/25 PROGRESS Observed: 03/13/2025 1:32 PM Status: COMPLETED Source: [facility] HNO ID: [id number] Author: MALATHI DE LA GARZA APRN.CHILD AND FAMILY THERAPIST Service: ? Author Type: Nurse Practitioner Type: Progress Notes Filed: 03/13/2025 14:10 Note Text: This is a 54 year old male who presents today with: Patient presents with: ER F/U: [facility] 03/07/25 HISTORY OF PRESENT ILLNESS: Matt Yoo is a 54 year old male. Patient presents with: ER F/U: [facility] 03/07/25 While on vacation, eating shellfish, beer, red meat on vacation. On HCTZ. Presented to ER with chest pain. Pain in upper lobes of lungs, no dyspnea while sleeping. Pain in temples, neck, and between shoulder blades. Hurt to breath. Went to bed agitated. Deep breath caused a 6/10 No arm pain No palpitations Went away while in ER Not with exertion No driving home PAST MEDICAL HISTORY: PAST MEDICAL HISTORY Diagnosis Date DDD (degenerative disc disease), lumbar Essential hypertension Hematochezia Seasonal allergies PAST SURGICAL HISTORY Procedure Laterality Date VASECTOMY UNI/BI SPX W/POSTOP SEMEN EXAMS two surgeries; congenital absence vas deferens right ALLERGIES Patient has no known allergies. MEDICATIONS Current Outpatient Medications Medication Sig ascorbic acid (VITAMIN C ORAL) Take by mouth. lisinopril-hydroCHLOROthiazide (ZESTORETIC) 20-12.5 mg per tablet Take 1 tablet by mouth every morning. ibuprofen (MOTRIN) 200 mg tablet Take 1-2 tablets by mouth every 6 hours as needed for pain (Take with food.). aspirin, enteric coated (ASPIRIN, ENTERIC COATED) 81 mg EC tablet Take 81 mg by mouth once daily. multivitamin/iron/folic acid (CENTRUM COMPLETE ORAL) Take by mouth. acetaminophen (TYLENOL) 325 mg tablet Take 650 mg by mouth every 6 hours as needed. No current facility-administered medications for this visit. FAMILY HISTORY Problem Relation Age of Onset No Known Problems Mother Hypertension Father Thyroid Father No Known Problems Sister Blood Clots Maternal Grandmother other (Other) Maternal Grandmother Stroke Maternal Grandfather other (MVA) Paternal Grandmother Stroke Paternal Grandfather Social History Tobacco Use Smoking status: Former Smokeless tobacco: Current Types: Chew Vaping Use Vaping status: Never Used Substance Use Topics Alcohol use: Yes Comment: rarely Drug use: No Comment: remote marijuana EXAM: BP 128/76 Pulse 104 Temp 37.1 ?C (98.8 ?F) Wt 122.5 kg (270 lb) SpO2 97% BMI 38.74 kg/m? PHYSICAL EXAM: Physical Exam Vitals reviewed. Constitutional: Appearance: Normal appearance. HENT: Head: Normocephalic. Cardiovascular: Rate and Rhythm: Normal rate and regular rhythm. Pulses: Normal pulses. Heart sounds: Normal heart sounds. Pulmonary: Effort: Pulmonary effort is normal. Breath sounds: Normal breath sounds. Musculoskeletal: Right lower leg: No edema. Left lower leg: No edema. Comments: Left great toe is inflamed, hot, redness at joint and 1+ edema- gout flare for a couple weeks Skin: General: Skin is warm and dry. Neurological: Mental Status: He is alert and oriented to person, place, and time. LABS: ASSESSMENT/PLAN: 1. Chest pain, unspecified type - ICD9: 786.50, ICD10: R07.9 (primary diagnosis) Atypical chest pain, symptoms are not consistent with cardiac ischemia due to nonexertional nature of symptom possible etiology include Anxiety Not related to activity - EXERCISE STRESS ECG (WITHOUT IMAGING) 2. Primary hypertension - ICD9: 401.9, ICD10: I10 - Controlled - Recommend home blood pressure monitoring, to bring results to next visit - Encouraged sodium restriction, DASH or Mediterranean diet - Recommend regular aerobic exercise - LISINOPRIL 30 MG TABLET 3. Acute idiopathic gout, unspecified site - ICD9: 274.01, ICD10: M10.00 Stop HCTZ - TART ORTIZ 30 MG-250 MG-75 MG-75 MG CAPSULE - TURMERIC 400 MG CAPSULE - METHYLPREDNISOLONE 4 MG TABLETS IN A DOSE PACK again - If recurrent, will need to check uric acid and start allopurinol Discussed treatment plan and patient voices understanding. Patient's questions answered appropriately. Medications and potential side effects were discussed and patient voices understanding. Return to the office as scheduled or as needed for worsening/no improvement. Malathi De La Garza APRN.CNP CNOV Observed: 03/13/2025 1:20 PM Status: COMPLETED Source: [facility] MATT YOO ([id number]) 1970 M Date Time Provider Department 03/13/25 1:20 PM [facility] During your visit today, we recorded the following information about you: Temperature Pulse Blood pressure Weight 98.8 degrees 104/minute 128/76 122.5 kg Malathi De La Garza APRN.CNP 03/13/2025 2:10 PM Signed This is a 54 year old male who presents today with: Patient presents with: ER F/U: [facility] 03/07/25 HISTORY OF PRESENT ILLNESS: Matt Yoo is a 54 year old male. Patient presents with: ER F/U: [facility] 03/07/25 While on vacation, eating shellfish, beer, red meat on vacation. On HCTZ. Presented to ER with chest pain. Pain in upper lobes of lungs, no dyspnea while sleeping. Pain in temples, neck, and between shoulder blades. Hurt to breath. Went to bed agitated. Deep breath caused a 6/10 No arm pain No palpitations Went away while in ER Not with exertion No driving home PAST MEDICAL HISTORY: PAST MEDICAL HISTORY Diagnosis Date DDD (degenerative disc disease), lumbar Essential hypertension Hematochezia Seasonal allergies PAST SURGICAL HISTORY Procedure Laterality Date VASECTOMY UNI/BI SPX W/POSTOP SEMEN EXAMS two surgeries; congenital absence vas deferens right ALLERGIES Patient has no known allergies. MEDICATIONS Current Outpatient Medications Medication Sig ascorbic acid (VITAMIN C ORAL) Take by mouth. lisinopril-hydroCHLOROthiazide (ZESTORETIC) 20-12.5 mg per tablet Take 1 tablet by mouth every morning. ibuprofen (MOTRIN) 200 mg tablet Take 1-2 tablets by mouth every 6 hours as needed for pain (Take with food.). aspirin, enteric coated (ASPIRIN, ENTERIC COATED) 81 mg EC tablet Take 81 mg by mouth once daily. multivitamin/iron/folic acid (CENTRUM COMPLETE ORAL) Take by mouth. acetaminophen (TYLENOL) 325 mg tablet Take 650 mg by mouth every 6 hours as needed. No current facility-administered medications for this visit. FAMILY HISTORY Problem Relation Age of Onset No Known Problems Mother Hypertension Father Thyroid Father No Known Problems Sister Blood Clots Maternal Grandmother other (Other) Maternal Grandmother Stroke Maternal Grandfather other (MVA) Paternal Grandmother Stroke Paternal Grandfather Social History Tobacco Use Smoking status: Former Smokeless tobacco: Current Types: Chew Vaping Use Vaping status: Never Used Substance Use Topics Alcohol use: Yes Comment: rarely Drug use: No Comment: remote marijuana EXAM: BP 128/76 Pulse 104 Temp 37.1 ?C (98.8 ?F) Wt 122.5 kg (270 lb) SpO2 97% BMI 38.74 kg/m? PHYSICAL EXAM: Physical Exam Vitals reviewed. Constitutional: Appearance: Normal appearance. HENT: Head: Normocephalic. Cardiovascular: Rate and Rhythm: Normal rate and regular rhythm. Pulses: Normal pulses. Heart sounds: Normal heart sounds. Pulmonary: Effort: Pulmonary effort is normal. Breath sounds: Normal breath sounds. Musculoskeletal: Right lower leg: No edema. Left lower leg: No edema. Comments: Left great toe is inflamed, hot, redness at joint and 1+ edema- gout flare for a couple weeks Skin: General: Skin is warm and dry. Neurological: Mental Status: He is alert and oriented to person, place, and time. LABS: ASSESSMENT/PLAN: 1. Chest pain, unspecified type - ICD9: 786.50, ICD10: R07.9 (primary diagnosis) Atypical chest pain, symptoms are not consistent with cardiac ischemia due to nonexertional nature of symptom possible etiology include Anxiety Not related to activity - EXERCISE STRESS ECG (WITHOUT IMAGING) 2. Primary hypertension - ICD9: 401.9, ICD10: I10 - Controlled - Recommend home blood pressure monitoring, to bring results to next visit - Encouraged sodium restriction, DASH or Mediterranean diet - Recommend regular aerobic exercise - LISINOPRIL 30 MG TABLET 3. Acute idiopathic gout, unspecified site - ICD9: 274.01, ICD10: M10.00 Stop HCTZ - TART ORTIZ 30 MG-250 MG-75 MG-75 MG CAPSULE - TURMERIC 400 MG CAPSULE - METHYLPREDNISOLONE 4 MG TABLETS IN A DOSE PACK again - If recurrent, will need to check uric acid and start allopurinol Discussed treatment plan and patient voices understanding. Patient's questions answered appropriately. Medications and potential side effects were discussed and patient voices understanding. Return to the office as scheduled or as needed for worsening/no improvement. BEN Sarmiento Jacqueline A, APRN.CNP 03/13/2025 2:08 PM Addendum - Stress test ordered - Stop lisinopril w/ HCTZ- switch to lisinopril 30 mg daily - Medrol dosepak ordered - Follow up in April as scheduled Allergies As of Date: 03/13/2025 (No Known Allergies) Date Reviewed: 10/31/2024 Reviewed by: Malathi De La Garza APRN.CNP - Fully Assessed Reason for Visit: ER F/U [41] Cmt: [facility] 03/07/25 Primary Visit Diagnosis:Chest pain, unspecified type [R07.9] Other Visit Diagnoses:Primary hypertension [I10] Acute idiopathic gout, unspecified site [M10.00] Order(s):lisinopril (ZESTRIL) 30 mg tabletTake 1 tablet by mouth once daily.Disp: 90 tabletRfl: 1 Vit K-Rlejhi-Tflbgp-Grape (TART ORTIZ) 96-721-38-75-20 mg capTake 1 tablet by mouth once daily.Disp: 90 capsuleRfl: 3 turmeric 400 mg capTake 1 tablet by mouth once daily.Disp: 90 capsuleRfl: 3 methylPREDNISolone (MEDROL, SANDEEP,) 4 mg Dose-PackTake as instructed per package.Disp: 21 tabletRfl: 0 EXERCISE STRESS ECG (WITHOUT IMAGING) [[id number]] Order #: [id number]: 1 FUTURE Prescriptions as of 03/13/2025 - lisinopril (ZESTRIL) 30 mg tablet Take 1 tablet by mouth once daily. - Vit J-Fhnezh-Jtnrxz-Grape (TART ORTIZ) 43-688-96-75-20 mg cap Take 1 tablet by mouth once daily. - turmeric 400 mg cap Take 1 tablet by mouth once daily. - methylPREDNISolone (MEDROL, SANDEEP,) 4 mg Dose-Pack Take as instructed per package. - ascorbic acid (VITAMIN C ORAL) Take by mouth. - ibuprofen (MOTRIN) 200 mg tablet Take 1-2 tablets by mouth every 6 hours as needed for pain (Take with food.). - aspirin, enteric coated (ASPIRIN, ENTERIC COATED) 81 mg EC tablet Take 81 mg by mouth once daily. - multivitamin/iron/folic acid (CENTRUM COMPLETE ORAL) Take by mouth. - acetaminophen (TYLENOL) 325 mg tablet Take 650 mg by mouth every 6 hours as needed. Problem List As Of Date: 03/13/2025 (None) Other instructions from your clinician: - Stress test ordered - Stop lisinopril w/ HCTZ- switch to lisinopril 30 mg daily - Medrol dosepak ordered - Follow up in April as scheduled Prescriptions ordered this encounter Disp Refills Start End LISINOPRIL 30 MG TABLET 90 t* 1 03/13/2025 09/09/2025 Route: ORAL Sig: Take 1 tablet by mouth once daily. TART ORTIZ 30 MG-250 MG-75 MG-75 MG* 90 c* 3 03/13/2025 03/13/2026 Class: OTC Route: ORAL Sig: Take 1 tablet by mouth once daily. TURMERIC 400 MG CAPSULE 90 c* 3 03/13/2025 03/13/2026 Route: ORAL Sig: Take 1 tablet by mouth once daily. METHYLPREDNISOLONE 4 MG TABLETS IN A* 21 t* 0 03/13/2025 03/19/2025 Sig: Take as instructed per package. Medications Discontinued During This Encounter Prescriptions - lisinopril-hydroCHLOROthiazide (ZESTORETIC) 20-12.5 mg per tablet (Discontinued) Take 1 tablet by mouth every morning. Level of Service: OFFICE/OUTPATIENT ESTABLISHED LOW [facility] 20 MIN [45726] Additional E/M codes: VISIT CPLX INHERENT EANDM ASSOC WITH MED * Encounter Status:Closed by MALATHI DE LA GARZA on 03/13/25 WESLEY Observed: 03/13/2025 12:00 AM Status: COMPLETED Source: [facility] Telephone (Fwd: Power) MATT YOO ([id number]) 1970 M Date Time Provider Department 03/13/25 [facility] During your visit today, we recorded the following information about you: Mariza Marquis LPN 03/13/2025 2:25 PM Signed [facility] pharmacy calling concerning the Turmeric rx, they do not have the 400 mg available. She has Turmeric 500 mg in stock. Pharmacy asking if BEVELER would want to change rx? Can not find 500 mg in computer, has combination with other items. Please advise Malathi De La Garza APRN.CHILD AND FAMILY THERAPIST 03/13/2025 5:00 PM Addendum Patient takes this [id number]. It was not meant to be sent as a prescription. Only the Medrol needs filledl. Lalitha Andersen MA 03/13/2025 5:15 PM Signed Pharmacy was notified Allergies As of Date: 03/13/2025 (No Known Allergies) Date Reviewed: 10/31/2024 Reviewed by: Malathi De La Garza APRN.CHILD AND FAMILY THERAPIST - Fully Assessed Reason for Visit: Medication Question [1478] Visit Diagnosis:Acute idiopathic gout, unspecified site [M10.00] Order(s):turmeric 400 mg capTake 1 tablet by mouth once daily.Disp: 90 capsuleRfl: 3 Prescriptions as of 03/13/2025 - lisinopril (ZESTRIL) 30 mg tablet Take 1 tablet by mouth once daily. - Vit H-Vfkrcd-Ldujgb-Grape (TART ORTIZ) 29-057-09-75-20 mg cap Take 1 tablet by mouth once daily. - methylPREDNISolone (MEDROL, SANDEEP,) 4 mg Dose-Pack Take as instructed per package. - turmeric 400 mg cap Take 1 tablet by mouth once daily. - ascorbic acid (VITAMIN C ORAL) Take by mouth. - ibuprofen (MOTRIN) 200 mg tablet Take 1-2 tablets by mouth every 6 hours as needed for pain (Take with food.). - aspirin, enteric coated (ASPIRIN, ENTERIC COATED) 81 mg EC tablet Take 81 mg by mouth once daily. - multivitamin/iron/folic acid (CENTRUM COMPLETE ORAL) Take by mouth. - acetaminophen (TYLENOL) 325 mg tablet Take 650 mg by mouth every 6 hours as needed. Problem List As Of Date: 03/13/2025 (None) Prescriptions ordered this encounter Disp Refills Start End TURMERIC 400 MG CAPSULE 90 c* 3 03/13/2025 03/13/2026 Class: OTC Route: ORAL Sig: Take 1 tablet by mouth once daily. Medications Discontinued During This Encounter Prescriptions - turmeric 400 mg cap (Discontinued) Take 1 tablet by mouth once daily. Encounter Status:Closed by LALITHA ANDERSEN on 03/13/25 WESLEY Observed: 03/13/2025 12:00 AM Status: COMPLETED Source: [facility] MATT YOO ([id number]) 1970 M Date Time Provider Department 03/13/25 MALATHI DE LA GARZA During your visit today, we recorded the following information about you: Malathi De La Garza APRN.ANGELA 03/13/2025 1:11 PM Signed Patient was seen at [facility] on chest pain described as a vice. He had bilateral jaw and neck pain, negative for nausea vomiting, diaphoresis, dyspnea, cough, fever, headache, reflux, or palpitations. Risk factors include former smoker, history of hypertension. No history of heart disease. No diabetes or high cholesterol. He does take low-dose aspirin and lisinopril with hydrochlorothiazide. While on vacation he was prescribed prednisone and meloxicam for exacerbation of gout. This occurred while on vacation in [place]. Blood pressure 152/94, heart rate 94, respirations 18 and a temp of 98 4. White blood count 13, hemoglobin 15, hematocrit 44, platelet count 303 Differential was high for neutrophils, low for lymphocytes at 10.3 and absolute neutrophils 10.6. Sodium 140, potassium 4.1, BUN 18, creatinine 0.98, and glucose 114. D-dimer 0.27. Troponin less than 6 and 7. Chest x-ray showed no acute disease. EKG had T waves in lead I and aVL and flipped T waves in leads III and aVF. Cardiology was conferred and felt that it was not cardiac. Allergies As of Date: 03/13/2025 (No Known Allergies) Date Reviewed: 10/31/2024 Reviewed by: Malathi De La Garza APRN.ANGELA - Fully Assessed Prescriptions as of 03/13/2025 - ascorbic acid (VITAMIN C ORAL) Take by mouth. - lisinopril-hydroCHLOROthiazide (ZESTORETIC) 20-12.5 mg per tablet Take 1 tablet by mouth every morning. - ibuprofen (MOTRIN) 200 mg tablet Take 1-2 tablets by mouth every 6 hours as needed for pain (Take with food.). - aspirin, enteric coated (ASPIRIN, ENTERIC COATED) 81 mg EC tablet Take 81 mg by mouth once daily. - multivitamin/iron/folic acid (CENTRUM COMPLETE ORAL) Take by mouth. - acetaminophen (TYLENOL) 325 mg tablet Take 650 mg by mouth every 6 hours as needed. Problem List As Of Date: 03/13/2025 (None) Encounter Status:Closed by MALATHI DE LA GARZA on 03/13/25 DEPRECATED HGB A1C BLD Collected: 10/31 9:01 AM Status: F Source: [facility] Comment: Specimen Type : BLOOD SPECIMEN Ordering Facility: [facility] Address: [address] [place] [address] TYPE CODE TESTS RESULT OUT OF RANGE REFERENCE UNITS LAB 4548-4(LOINC) HbA1c MFr Bld 5.3 4.3-5.6 % Result Comment: [place] [employer] betes [employer] guidelines indicate that patients with HgbA1c in the range 5.7-6.4% are at increased risk for development of diabetes, and intervention by lifestyle modification may be beneficial. HgbA1c greater or equal to 6.5% is considered diagnostic of diabetes. LAB 94965-1(LOINC) Est. average glucose Bld gHb Est-mCnc 105 mg/dL Result Comment: eAG: (Estima divina average glucose) is a calculated value from HgbA1c and is phone representative of the average blood glucose level in the last 2-3 month period. Performed By: #### [id number] # ### [facility] CLIA [id number] [address] [place], [place] [address] [place] [address] [place] LIPID PANEL, NONFASTING Collected: 10/31/2024 9:01 AM Status: F Source: [facility] Comment: Specimen Type : BLOOD SPECIMEN Ordering Facility: [facility] Address: [address] [place] [address] TYPE CODE TESTS RESULT OUT OF RANGE REFERENCE UNITS LAB CHOLNF TOTAL CHOLESTEROL NF 258 High <200 mg/dL Result Comment: <200 mg/dL, Desirable 200-239 mg/dL, Borderline high >239 mg/dL, High LAB TRIGNF TRIGLYCERIDES, NF 162 High <150 mg/dL Result Comment: <150 mg/dL, Normal 150-199 mg/dL, Borderline high 200-499 mg/dL, High >499 mg/dL, Very high LAB HDLNF HDL CHOLESTEROL, NF 45 >39 mg/dL Result Comment: 40-59 mg/dL, Acceptable >59 mg/dL, High: Negative risk factor for coronary heart disease <40 mg/dL, Low: Positive risk factor for coronary heart disease LAB LDLNF LDL CHOLESTEROL, NF 181 High <100 mg/dL Result Comment: <100 mg/dL, Optimal 100-129 mg/dL, Near optimal/above optimal 130-159 mg/dL, Borderline high 160-189 mg/dL, High >189 mg/dL, Very high Secondary prevention optimal LDL Cholesterol levels are recommended to be < 70 mg/dL LAB NOHDLN NON HDL CHOL, NF 213 High <130 mg/dL Result Comment: <130 mg/dL, Optimal 130-159 mg/dL, Near optimal/above optimal 160-189 mg/dL, Borderline high 190-219 mg/dL, High >219 mg/dL, Very high Secondary prevention optimal non HDL Cholesterol levels are recommended to be <100 mg/dL LAB VLDLNF VLDL CHOLESTEROL, NF 32 High <30 mg/dL LAB TCHDLN T CHOL/HDL RATIO NF 5.73 High <5.10 mg/dL LAB LDLHDN LDL/HDL RATIO, NF 4.02 High <2.54 mg/dL Result Comment: Reference: 1. National Cholesterol Education Program ATP III Guideline At-A-Glance Quick Desk Reference: National Heart, Lung, and Blood [place]. National Institutes of Health. 2001: NIH Publication No. 01-3305. 2. An International Atherosclerosis Society position paper: global recommendations for the management of dyslipidemia: executive summary, Atherosclerosis. 2014: 232(2):410-413. Performed By: #### SUHAIL, #### [facility] CLIA [id number] [address] [place] [address] [place] VIT B12 SERPL-MCNC Collected: 10/31/2024 9:01 AM Sta tus: F Source: [facility] Order Comment: Specimen Type : BLOOD SPECIMEN Ordering Facility: [facility] Address: [address] [place] [address] TYPE CODE TESTS RESULT OUT OF RANGE REFERENCE UNITS LAB 2132-07(LOINC) Vit B12 SerPl-mCnc 871 [id number] pg/mL Performed By: #### SUHAIL, #### [facility] CLIA [id number] [address] [place] [address] PSA/PROSTATE SPECIFIC ANTIGEN SCREENING Collected: 10/31/2024 9:01 AM Status: F Source: [facility] Comment: Specimen Type : BLOOD SPECIMEN Ordering Facility: [facility] Address: [address] [place] [address] TYPE CODE TESTS RESULT OUT OF RANGE REFERENCE UNITS LAB 2857-1(LOINC) PSA SerPl-mCnc 1.95 <2.60 ng/mL Result Comment: Total PSA te st methodology used is the Electrochemiluminescence Immunoassay by [employer] (Inside[employer]). Total PSA values by differing methodologies cannot be interchanged. Performed By: #### PSAS1 ### # [facility] CLIA [id number] [address] [place] [address] 25(OH)D3 SERPL-MCNC Collected: 10/31/2024 9:[address] atus: F Source: [facility] Comment: Specimen Type : BLOOD SPECIMEN Ordering Facility: [facility] Address: [address] [place] [address] TYPE CODE TESTS RESULT OUT OF RANGE REFERENCE UNITS LAB 1988-3(LOINC) 25(OH)D3 SerPl-mCnc 31.5 31.0-80.0 ng/mL Performed By: #### 1988-3 ## ## [facility] CLIA [id number] [address] [place] [address] OF [place] PROGRESS Observed: 10/31/2024 8:22 AM Status: COMPLETED Source: [facility] HNO ID: [id number] Author: MALATHI DE LA GARZA APRN.CHILD AND FAMILY THERAPIST Service: ? Author Type: Clinical Nurse Specialist Type: Progress Notes Filed: 10/31/2024 08:48 Note Text: This is a 54 year old male who presents today with: Patient presents with: 6 Month Exam HISTORY OF PRESENT ILLNESS: Matt Yoo is a 54 year old male. Patient presents with: 6 Month Exam HTN: Patient is compliant with meds No Monitors bp at home: No. Denies side effects: No. Chest pain: No. Dyspnea: Some with exertion. Edema: No. Palpitations: No. Syncope: No. Headache: Some. Dizziness: Occ. PAST MEDICAL HISTORY: PAST MEDICAL HISTORY Diagnosis Date DDD (degenerative disc disease), lumbar Essential hypertension Hematochezia Seasonal allergies PAST SURGICAL HISTORY Procedure Laterality Date VASECTOMY UNI/BI SPX W/POSTOP SEMEN EXAMS two surgeries; congenital absence vas deferens right ALLERGIES Patient has no known allergies. MEDICATIONS Current Outpatient Medications Medication Sig ascorbic acid (VITAMIN C ORAL) Take by mouth. lisinopril (ZESTRIL) 20 mg tablet Take 1 tablet by mouth once daily. lisinopril-hydroCHLOROthiazide (ZESTORETIC) 20-12.5 mg per tablet Take 1 tablet by mouth every morning. ibuprofen (MOTRIN) 200 mg tablet Take 1-2 tablets by mouth every 6 hours as needed for pain (Take with food.). aspirin, enteric coated (ASPIRIN, ENTERIC COATED) 81 mg EC tablet Take 81 mg by mouth once daily. multivitamin/iron/folic acid (CENTRUM COMPLETE ORAL) Take by mouth. acetaminophen (TYLENOL) 325 mg tablet Take 650 mg by mouth every 6 hours as needed. No current facility-administered medications for this visit. FAMILY HISTORY Problem Relation Age of Onset No Known Problems Mother Hypertension Father Thyroid Father No Known Problems Sister Blood Clots Maternal Grandmother other (Other) Maternal Grandmother Stroke Maternal Grandfather other (MVA) Paternal Grandmother Stroke Paternal Grandfather Social History Tobacco Use Smoking status: Former Smokeless tobacco: Current Types: Chew Vaping Use Vaping status: Never Used Substance Use Topics Alcohol use: Yes Comment: rarely Drug use: No Comment: remote marijuana REVIEW OF SYSTEMS GENERAL: No weight loss, occ. Malaise- mental exhaustion, no fevers/ the other chills HEENT: Negative for frequent or significant headaches- occ., Some changes in hearing, no vision. NECK: Negative for lumps, goiter, pain and significant neck swelling RESPIRATORY: Negative for cough, hemoptysis, wheezing, occ. dyspnea or shortness of breath CARDIOVASCULAR: Negative for chest pain, leg swelling, orthopnea, or palpitations GI: No nausea, vomiting, or diarrhea/constipation. No hematochezia/melena. Occ heartburn or reflux symptoms. : No history of dysuria, frequency or incontinence MUSCULOSKELETAL: Left wrist chronic joint pain or swelling. SKIN: Negative for lesions, rash, and itching- had a rash a month ago ENDOCRINE: Negative for cold or heat intolerance, polyuria, polydipsia and goiter NEURO: No history of headaches, syncope, paralysis, seizures or tremors MOOD: Negative for depression, anxiety, or suicidal ideation. EXAM: BP 140/82 Pulse 85 Resp 16 Wt 123.8 kg (273 lb) SpO2 96% BMI 39.17 kg/m? 128/88 on recheck PHYSICAL EXAM: Physical Exam Vitals reviewed. Constitutional: Appearance: Normal appearance. HENT: Head: Normocephalic. Cardiovascular: Rate and Rhythm: Normal rate and regular rhythm. Pulses: Normal pulses. Heart sounds: Normal heart sounds. Comments: Dim at apex Pulmonary: Effort: Pulmonary effort is normal. Breath sounds: Normal breath sounds. Abdominal: General: Bowel sounds are normal. There is no distension. Palpations: Abdomen is soft. Tenderness: There is no abdominal tenderness. There is no guarding. Musculoskeletal: General: Normal range of motion. Skin: General: Skin is warm and dry. Neurological: Mental Status: He is alert and oriented to person, place, and time. LABS: check labs ASSESSMENT/PLAN: 1. Screening for colon cancer - ICD9: V76.51, ICD10: Z12.11 (primary diagnosis) Declined consult 2. Screening for depression - ICD9: V79.0, ICD10: Z13.31 Declined - DEPRESSION SCREENING 3. Encounter for screening examination for other mental health and behavioral disorders - ICD9: V79.8, ICD10: Z13.39 Declined - ANXIETY SCREENING 4. Primary hypertension - ICD9: 401.9, ICD10: I10 - Uncontrolled - Recommend home blood pressure monitoring, to bring results to next visit - Encouraged sodium restriction, DASH or Mediterranean diet - Recommend regular aerobic exercise - Missed BP medication last night - Reduce to lisinopril /HCT 20/12.5 mg daily, stop lisinopril 5. Mixed hyperlipidemia - ICD9: 272.2, ICD10: E78.2 - Control undetermined, due for labs - Counseled on healthy diet and regular exercise Discussed treatment plan and patient voices understanding. Patient's questions answered appropriately. Medications and potential side effects were discussed and patient voices understanding. Return to the office as scheduled or as needed for worsening/no improvement. Malathi De La Garza APRN.CHILD AND FAMILY THERAPIST CNOV Observed: 10/31/2024 8:00 AM Status: COMPLETED Source: [facility] Office Visit (FAMPWS) MATT YOO ([id number]) 1970 M Date Time Provider Department 10/31/24 8:00 AM [facility] During your visit today, we recorded the following information about you: Pulse Respiration Blood pressure Weight 85/minute 16/minute 128/88 123.8 kg Malathi De La Garza APRN.[facility] 10/31/2024 8:48 AM Signed This is a 54 year old male who presents today with: Patient presents with: 6 Month Exam HISTORY OF PRESENT ILLNESS: Matt Yoo is a 54 year old male. Patient presents with: 6 Month Exam HTN: Patient is compliant with meds No Monitors bp at home: No. Denies side effects: No. Chest pain: No. Dyspnea: Some with exertion. Edema: No. Palpitations: No. Syncope: No. Headache: Some. Dizziness: Occ. PAST MEDICAL HISTORY: PAST MEDICAL HISTORY Diagnosis Date DDD (degenerative disc disease), lumbar Essential hypertension Hematochezia Seasonal allergies PAST SURGICAL HISTORY Procedure Laterality Date VASECTOMY UNI/BI SPX W/POSTOP SEMEN EXAMS two surgeries; congenital absence vas deferens right ALLERGIES Patient has no known allergies. MEDICATIONS Current Outpatient Medications Medication Sig ascorbic acid (VITAMIN C ORAL) Take by mouth. lisinopril (ZESTRIL) 20 mg tablet Take 1 tablet by mouth once daily. lisinopril-hydroCHLOROthiazide (ZESTORETIC) 20-12.5 mg per tablet Take 1 tablet by mouth every morning. ibuprofen (MOTRIN) 200 mg tablet Take 1-2 tablets by mouth every 6 hours as needed for pain (Take with food.). aspirin, enteric coated (ASPIRIN, ENTERIC COATED) 81 mg EC tablet Take 81 mg by mouth once daily. multivitamin/iron/folic acid (CENTRUM COMPLETE ORAL) Take by mouth. acetaminophen (TYLENOL) 325 mg tablet Take 650 mg by mouth every 6 hours as needed. No current facility-administered medications for this visit. FAMILY HISTORY Problem Relation Age of Onset No Known Problems Mother Hypertension Father Thyroid Father No Known Problems Sister Blood Clots Maternal Grandmother other (Other) Maternal Grandmother Stroke Maternal Grandfather other (MVA) Paternal Grandmother Stroke Paternal Grandfather Social History Tobacco Use Smoking status: Former Smokeless tobacco: Current Types: Chew Vaping Use Vaping status: Never Used Substance Use Topics Alcohol use: Yes Comment: rarely Drug use: No Comment: remote marijuana REVIEW OF SYSTEMS GENERAL: No weight loss, occ. Malaise- mental exhaustion, no fevers/ the other chills HEENT: Negative for frequent or significant headaches- occ., Some changes in hearing, no vision. NECK: Negative for lumps, goiter, pain and significant neck swelling RESPIRATORY: Negative for cough, hemoptysis, wheezing, occ. dyspnea or shortness of breath CARDIOVASCULAR: Negative for chest pain, leg swelling, orthopnea, or palpitations GI: No nausea, vomiting, or diarrhea/constipation. No hematochezia/melena. Occ heartburn or reflux symptoms. : No history of dysuria, frequency or incontinence MUSCULOSKELETAL: Left wrist chronic joint pain or swelling. SKIN: Negative for lesions, rash, and itching- had a rash a month ago ENDOCRINE: Negative for cold or heat intolerance, polyuria, polydipsia and goiter NEURO: No history of headaches, syncope, paralysis, seizures or tremors MOOD: Negative for depression, anxiety, or suicidal ideation. EXAM: BP 140/82 Pulse 85 Resp 16 Wt 123.8 kg (273 lb) SpO2 96% BMI 39.17 kg/m? 128/88 on recheck PHYSICAL EXAM: Physical Exam Vitals reviewed. Constitutional: Appearance: Normal appearance. HENT: Head: Normocephalic. Cardiovascular: Rate and Rhythm: Normal rate and regular rhythm. Pulses: Normal pulses. Heart sounds: Normal heart sounds. Comments: Dim at apex Pulmonary: Effort: Pulmonary effort is normal. Breath sounds: Normal breath sounds. Abdominal: General: Bowel sounds are normal. There is no distension. Palpations: Abdomen is soft. Tenderness: There is no abdominal tenderness. There is no guarding. Musculoskeletal: General: Normal range of motion. Skin: General: Skin is warm and dry. Neurological: Mental Status: He is alert and oriented to person, place, and time. LABS: check labs ASSESSMENT/PLAN: 1. Screening for colon cancer - ICD9: V76.51, ICD10: Z12.11 (primary diagnosis) Declined consult 2. Screening for depression - ICD9: V79.0, ICD10: Z13.31 Declined - DEPRESSION SCREENING 3. Encounter for screening examination for other mental health and behavioral disorders - ICD9: V79.8, ICD10: Z13.39 Declined - ANXIETY SCREENING 4. Primary hypertension - ICD9: 401.9, ICD10: I10 - Uncontrolled - Recommend home blood pressure monitoring, to bring results to next visit - Encouraged sodium restriction, DASH or Mediterranean diet - Recommend regular aerobic exercise - Missed BP medication last night - Reduce to lisinopril /HCT 20/12.5 mg daily, stop lisinopril 5. Mixed hyperlipidemia - ICD9: 272.2, ICD10: E78.2 - Control undetermined, due for labs - Counseled on healthy diet and regular exercise Discussed treatment plan and patient voices understanding. Patient's questions answered appropriately. Medications and potential side effects were discussed and patient voices understanding. Return to the office as scheduled or as needed for worsening/no improvement. BEN Sarmiento Jacqueline A, APRN.CNP 10/31/2024 8:48 AM Addendum 1) Get labs today 2) Reduce medication to lisinopril/ HCT once daily, stop the plain lisinopril at bedtime 3) Follow up in 6 months Allergies As of Date: 10/31/2024 (No Known Allergies) Date Reviewed: 10/31/2024 Reviewed by: Malathi De La Garza APRN.CNP - Fully Assessed Reason for Visit: 6 Month Exam [189] Primary Visit Diagnosis:Screening for colon cancer [Z12.11] Other Visit Diagnoses:Screening for depression [Z13.31] Encounter for screening examination for other mental health and behavioral disorders [Z13.39] Primary hypertension [I10] Mixed hyperlipidemia [E78.2] Hypertension, essential [I10] Order(s):DEPRESSION SCREENING [] Order #: [id number]: 1 ANXIETY SCREENING [] Order #: [id number]: 1 lisinopril-hydroCHLOROthiazide (ZESTORETIC) 20-12.5 mg per tabletTake 1 tablet by mouth every morning.Disp: 90 tabletRfl: 3 Prescriptions as of 10/31/2024 - ascorbic acid (VITAMIN C ORAL) Take by mouth. - lisinopril-hydroCHLOROthiazide (ZESTORETIC) 20-12.5 mg per tablet Take 1 tablet by mouth every morning. - ibuprofen (MOTRIN) 200 mg tablet Take 1-2 tablets by mouth every 6 hours as needed for pain (Take with food.). - aspirin, enteric coated (ASPIRIN, ENTERIC COATED) 81 mg EC tablet Take 81 mg by mouth once daily. - multivitamin/iron/folic acid (CENTRUM COMPLETE ORAL) Take by mouth. - acetaminophen (TYLENOL) 325 mg tablet Take 650 mg by mouth every 6 hours as needed. Problem List As Of Date: 10/31/2024 (None) Other instructions from your clinician: 1) Get labs today 2) Reduce medication to lisinopril/ HCT once daily, stop the plain lisinopril at bedtime 3) Follow up in 6 months Prescriptions ordered this encounter Disp Refills Start End LISINOPRIL 20 MG-HYDROCHLOROTHIAZIDE* 90 t* 3 10/31/2024 10/31/2025 Route: ORAL Sig: Take 1 tablet by mouth every morning. Medications Discontinued During This Encounter Prescriptions - lisinopril (ZESTRIL) 20 mg tablet (Discontinued) Take 1 tablet by mouth once daily. - lisinopril-hydroCHLOROthiazide (ZESTORETIC) 20-12.5 mg per tablet (Discontinued) Take 1 tablet by mouth every morning. Level of Service: OFFICE/OUTPATIENT ESTABLISHED LOW MDM 20 MIN [15697] Additional E/M codes: VISIT CPLX INHERENT EANDM ASSOC WITH MED * Disposition: Return in about 6 months (around 05/01/2025) for Follow up in 6 months. LOS History for Encounter Level of Service: OFFICE/OUTPATIENT ESTABLISHED MOD MDM 30 MIN[81502] Date AND Time: 10-31-2024 8:42 AM Recorded by User: MALATHI DE LA GARZA Follow-up and Disposition History for Encounter Date Provider Department Center 10/31/2024 [id number]-UBJSTHINOCENCIA DE LA GARZA*FAMPWS [facility] Encounter Status:Closed by MALATHI DE LA GARZA on 10/31/24 ALLERGIES DATE TYPE / CODE NAME / CODE REACTION SEVERITY SOURCE Drug Class/[id number](SNO MED CT) NO KNOWN ALLERGIES [facility] ENCOUNTERS ADMIT/DISCHARGE ACCOUNT NUMBER ADMITTING ENCOUNTER CLASS LOC ATION SOURCE 07/10/2025/ 5 [id number] Ambulatory [facility] 06/16/2025/ 5 [id number] [facility] 06/02/2025/ 5 [id number] [facility] 05/02/2025/ 5 [id number] [facility] 03/13/2025/ 5 [id number] [facility] 10/31/2024/ 4 [id number] [facility] 10/31/2024/ 4 [id number] [facility] PAYERS ENCOUNTER GUARANTOR PAYER SUBSCRIBER SOURCE 07/10/2025 Primary Insurance:[employer] Number: [id number] e Date:3052-21-75Jitm Name:Connie YOOKASSIE: [id number] [id number] [place] [address] 06/16/2025 Primary Insurance:[employer] PPOPolicy Number: [id number] e Date:6621-48-15Tgzc Name:Connie YOOB: [id number] [place] [address] 06/02/2025 Primary Insurance:[employer] PPCoupons [place] Number: [id number] e Date:6675-42-59Yqrf Name:Connie PEREZB: [id number] 05/02/2025 Primary Insurance:[employer] PPOPolicy Number: [id number] e Date:0600-84-19Cuzv Name:Connie PEREZB: [id number] 03/13/2025 Primary Insurance:[employer] PPOPolicy Number: [id number] e Date:2536-79-37Ztcd Name:Connie JOHN: [id number] 10/31/2024 Primary Insurance:[employer] PPOPolicy Number: [id number] e Date:1645-14-15Tetp Name:Connie JOHN: [id number] 10/31/2024 Primary Insurance:[employer] PPOPolicy Number: [id number] e Date:6280-43-76Uzld Name:Connie JOHN: [id number]
[2025-08-21 11:02] LABS: Cholesterol 244 mg/dL (<=200); Low Density Lipoprotein Calc. 151 mg/dL; Triglycerides 252 mg/dL; Very Low Density Lipoprotein 50 mg/dL (5-40); cholesterol:hdl ratio screen 5.70
== END | disposition home or self-care (01) ==
LOC: LAB 09:16
PROVIDERS: PCP Clinical Nurse Specialist Adult Health; Referring Provider Internal Medicine Cardiovascular Disease; Visit Provider Internal Medicine Cardiovascular Disease
DX: I10 Essential (primary) hypertension (principal)
CPT/HCPCS: 36415; 80061

== ENCOUNTER → 2025-09-15 | Outpatient (CLI) | payer OTHER, SELFPAY ==
--- NOTE | 2025-09-15 08:00 | CT_ITS ---
PROCEDURE: LIMITED CHEST CT CARDIAC ONLY 09/15/2025 REASON FOR EXAM: ABDNORMAL STRESS Chest pain. TECHNIQUE: Procedure Code: [id number] Modality: CT Procedure: LIMITED CHEST CT CARDIAC ONLY One or more dose reduction techniques were used (e.g., Automated exposure control, adjustment of the mA and/or kV according to patient size, use of iterative reconstruction technique). RADIATION DOSE SUMMARY: CTDlvol: 12.19 mGy DLP: 195.04 mGycm COMPARISON: Chest x-ray of 03/07/2025. CT/Limited Chest CT Cardiac Only IMPRESSION: Limited imaging of the lungs demonstrates no acute process. No pleural effusion or pneumothorax is seen in visualized areas. No adenopathy is noted. The visualized upper abdomen demonstrates no significant abnormality. Reading Location: [place] [address]
--- NOTE | 2025-09-16 14:23 | CA.SCORE ---
Calcium Scoring Date of Study:: 09/15/25 Indications Indications: abnormal CT Coronary Calcium Scoring: High-resolution Computed Tomographic imaging of the chest was performed on [09/15/25 ], with particular attention paid to the coronary arteries. Images from the examination were analyzed for the presence and extent of coronary artery calcification , using coronary calcium quantification software. The patient tolerated the procedure well and there were no complications. The results of the coronary calcification analysis are provided below. Findings Coronary Artery Left Main (LM): 0 Left Anterior Descending (LAD): 0 Left Circumflex (LCX): 0 Right Coronary Artery (RCA): 0 Total Agatston Score: 0 Percentile Rankin Calcium Scoring Interpretation: Different methods to categorize the overall amount of coronary plaque. Overall amount CAC SIS Visual of coronary plaque P1 Mild -100 <2 1-2 vessels with mild amount of plaque P2 Moderate 101-300 3-4 1-2 vessels with moderate amount, 3 vessels with mild amount of plaque P3 Severe 301-999 5-7 3 vessels with moderate amount, 1 vessel with severe amount of plaque P4 Extensive >1000 >8 2-3 vessels with severe amount of plaque Conclusion: No atherosclerotic plaque
== END | disposition home or self-care (01) ==
PROVIDERS: PCP Clinical Nurse Specialist Adult Health; Referring Provider Internal Medicine Cardiovascular Disease; Visit Provider Internal Medicine Cardiovascular Disease
DX: I10 Essential (primary) hypertension (principal); R94.39 Abnormal result of other cardiovascular function study; E78.5 Hyperlipidemia, unspecified
CPT/HCPCS: 75571; 76380